=== PATIENT | male | born 1940 | race Caucasian/White ===

== ENCOUNTER 2017-03-11 13:52 | Inpatient (IN) | payer MEDICARE, OTHER ==
[~2017-03-11] VITALS: Ht 182.8 cm; Wt 103.1 kg
--- NOTE | ~2017-03-11 | PR ---
[place], [place] PROGRESS NOTE NAME: NIURKA HUNTER UNIT #: [id number] ROOM: 410 DOCTOR: AMEENA REYNOLDS MD BIRTHDATE: [birth year] DOS: 03/21/2017 SUBJECTIVE: The patient has been noted comfortable at this time. He has been complaining of some pain, which has been noted stable at this time. He denies any acute shortness of breath. Denies symptoms of chest pain. Mild cough is noted. OBJECTIVE: VITAL SIGNS: Which were recorded show normal temperature, respiratory rate 16, heart rate 82, blood pressure 132/52-134/55. Pulse oxygen saturation noted on 6 liters nasal cannula 97% saturation. HEENT: Showed no new change. NECK: Supple. CARDIOVASCULAR: S1, S2 audible. LUNGS: The patient was noted without any wheezing or crackles at this time. ABDOMEN: Soft, nontender. IMPRESSION: 1. The patient with acute hypoxic respiratory failure. The patient was noted at present time with a history of metastatic squamous cancer of unknown primary. 2. Acute exacerbation of chronic obstructive pulmonary disease. 3. Atrial fibrillation. 4. Pathological fracture of left humerus, status post ORIF. LABORATORY DATA: BMP today, glucose is 38, already treated. BUN is normal, creatinine was normal. CO2 of 34. INR was noted subtherapeutic at 1.3. CBC this morning: WBC count of 19.6, hemoglobin 10.4, hematocrit 32.5, platelet count 210,000. PLAN OF TREATMENT: Continuation of the current therapy plan and management as in progress. Bronchodilators, oxygen supplementation and decreasing oxygen supplementation progressive to maintain saturation 90% greater. Medical management of the hypoglycemia. Other supportive plan of therapy, physical therapy and other treatment plan and management. Overall prognosis of the patient is guarded. [place], [place] PROGRESS NOTE NAME: NIURKA HUNTER UNIT #: [id number] ROOM: 410 DOCTOR: AMEENA REYNOLDS MD BIRTHDATE: [birth year] AMEENA CAMEJO MD CM:PNTRANS [phone] AMEENA HARRIS MD 03/22/17 1431 interface
--- NOTE | ~2017-03-11 | PR ---
[place], [place] PROGRESS NOTE NAME: NIURKA HUNTER [facility] #: [id number] UNIT #: [id number] ROOM: [facility] DOCTOR: YAYA ANGLIN MD BIRTHDATE: [birth year] DOS: 03/14/2017 SUBJECTIVE: The patient is doing much better. He is awake, alert. He underwent a CT-guided biopsy of the liver, which he tolerated very well. He is on BiPAP at this time. PHYSICAL EXAMINATION: GENERAL: Pleasant gentleman in no apparent distress. VITAL SIGNS: Blood pressure 131/67, respirations 16, pulse 91, temperature 97.9. HEENT: Normocephalic, atraumatic. NECK AND THYROID: Supple. No JVD, thyromegaly, or lymphadenopathy. HEART: Normal S1, S2. Regular rate and rhythm. LUNGS: Clear to auscultation and percussion. ABDOMEN: Soft. Nontender, nondistended. Bowel sounds present. EXTREMITIES: Normal ROM. No clubbing. No edema. LABORATORY DATA: White count of 12.4, hemoglobin of 12.0, hematocrit of 37.4, platelet count of 285. BUN of 14, EGFR is more than 60, sodium 136, potassium 4.5, chloride 95, bicarbonate 34, calcium 9.3, magnesium 1.7, phosphorus 3.3. RADIOLOGY: Bone scan was cancer of unknown reason. CT of the chest, abdomen, and pelvis showed multiple hepatic metastases as well as metastatic lesion in the T7 vertebral body with a slight pathologic compression deformity at 2.5 cm in depth, indeterminate right adrenal mass. ASSESSMENT: 1. Multiple hepatic metastases, status post liver biopsy today. 2. Metastatic lesion in the T7 vertebral body with slight pathologic compression deformity. 3. A 2.5 cm indeterminate right adrenal mass. 4. Pathological fracture of the left humerus. 5. Leukocytosis, probably reactive. PLAN: He had a biopsy done. We will wait for the biopsy reports to come back, then further evaluation about further planning will be done. In the meantime, we will continue pain control with fentanyl patch, although it may not be a bad idea for him to get eliel in. They are going to discuss with Dr. Rae about it. He will continue broad spectrum antibiotics for his left-sided pneumonia. Ample time was given for the patient to ask me questions. [place], [place] PROGRESS NOTE NAME: NIURKA HUNTER UNIT #: [id number] ROOM: [facility] DOCTOR: YAYA ANGLIN MD BIRTHDATE: [birth year] YAYA ANGLNI MD CM:YAAKOV [id number] YAYA ANGLIN MD 03/15/17 0154 interface
--- NOTE | ~2017-03-11 | PR ---
[place], [place] PROGRESS NOTE NAME: NIURKA HUNTER [facility] #: [id number] UNIT #: [id number] ROOM: 410 DOCTOR: YAYA ANGLIN MD BIRTHDATE: [birth year] DOS: 03/20/2017 SUBJECTIVE: The patient is doing much better. He is awake, alert and responsive. He got his surgery done without any problems. REVIEW OF SYSTEMS HEENT: No trouble swallowing. No double vision. No loss of vision. No pain. ENT AND RESPIRATORY: No wheeze. No change in voice. No cough. No shortness of breath. No coughing up blood. No epistaxis. CARDIOLOGIC: No chest pain. No dizziness. No irregular heartbeat. No leg edema. No palpitations. No shortness of breath. HEMATOLOGIC AND LYMPH: No past transfusion. No fatigue. No loss of appetite. No easy bruising. GASTROENEROLOGIC: No change in bowel habits. No vomiting blood. No abdominal cramping. No nausea. No vomiting. No diarrhea. No constipation. No blood in stool. MALE REPRODUCTIVE: No testicular pain. No penile discharge. MUSCULOSKELETAL: No back pain. No muscle pain or weakness. No tingling/numbness. UROLOGIC: No pain with urination. No difficulty urinating. No frequent urination. NEUROLOGIC: No burning pain in feet. No trouble with coordination. No loss of consciousness. No headache. No tingling/numbness. No memory loss. PHYSICAL EXAMINATION GENERAL: A pleasant gentleman in no apparent distress. VITAL SIGNS: Stable. Afebrile. HEENT: Normocephalic, atraumatic NECK AND THYROID: Supple. No JVD, thyromegaly, or lymphadenopathy. HEART: Normal S1, S2. Regular rate and rhythm. LUNGS: Clear to auscultation and percussion. ABDOMEN: Soft. Nontender, nondistended. Bowel sounds present. EXTREMITIES: Normal ROM. No clubbing. No edema. LABORATORY DATA: White count 19.2, hemoglobin 10.7, hematocrit is 33.6, platelet count 239. Pathology showed metastatic squamous cell carcinoma. A plain x-ray showed faint amount of mild lucency in the proximal shaft in left femur, which corresponds to mild increased activity seen in the recent bone exam. No acute bone pathology. Bone scan showed abnormal areas of increased uptake consistent with metastatic disease to the sternum, left humerus, T8, progress into the left femur and right trapezius. Abnormal uptake is noted in the paranasal sinus region which may represent sinusitis. CT of the neck showed no definite hyperdense/enhancing mucosal mass lesions. There is mild irregular thickening of the supraglottic and hypopharyngeal mucosal surfaces nonspecific. Recommend direct visualization. If there is a persistent concern for subtle mucosal sinus cell carcinoma. 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 [place], [place] PROGRESS NOTE NAME: NIURKA HUNTER UNIT #: [id number] ROOM: 410 DOCTOR: YAYA ANGLIN MD BIRTHDATE: [birth year] ASSESSMENT: 1. Status post eliel in the left humerus, which the patient tolerated very well. 2. Leukocytosis, reactive. 3. Metastatic squamous cell carcinoma with metastasis to the liver ____. 4. Mild abnormality in the head and neck area. 5. Pneumonia involving the left lung. 6. Metastatic cancer of unknown primary. PLAN: Overall, he has done much better. He has tolerated the surgery well. I expect leukocytosis to get better. I will talk to the family and the medical reception if we need to let ENT involve for direct visualization of the head and neck area. I also discussed the case with Dr. Avelar, he does not think ____. We may also involve Dr. Soni for a sigmoidoscopy to rule out any internal CA. I had detailed discussion with the patient about it, he seemed to understand it. Ample time was given to the patient to ask me questions. YAYA ANGLIN MD CM:PNTRANS 1129 165 YAYA ANGLIN MD 03/20/17 165 interface
--- NOTE | ~2017-03-11 | PR ---
[place], [place] PROGRESS NOTE NAME: NIURKA HUNTER UNIT #: [id number] ROOM: [facility] DOCTOR: AMEENA REYNOLDS MD BIRTHDATE: [birth year] DOS: 03/18/2017 PULMONARY FOLLOWUP SUBJECTIVE: He has been comfortably resting in the bed at this time. He has a biopsy of the liver done last week, pending results at this time. Denies any cough, shortness of breath has been improving since the BiPAP. The patient is ordered with oxygen supplementation intermittently. OBJECTIVE: VITAL SIGNS: Normal temperature, respiratory rate of 13, heart rate 69, blood pressure 100/54. The pulse oxygen saturation has been noted 95% on 40% of oxygen. HEENT: Showed no new change. NECK: Supple. CARDIOVASCULAR: S1, S2 audible. LUNGS: Noted without any wheezing or crackles. ABDOMEN: Soft, nontender. It was obese. EXTREMITIES: Shows no new changes. LABORATORY DATA: CBC today: WBC count 21.2, hemoglobin 11.5, hematocrit 36.2, platelet count was normal. The PTT was noted this morning as 79. It was noted therapeutic range. The blood culture on 03/13/2017 shows no bacterial growth as a final result. IMPRESSION: 1. Improving acute hypoxic respiratory failure progressively with suspected metastatic cancer, primary unknown, status post biopsy of the liver. 2. Overall debility, still persisted. 3. Anticoagulation ____ therapeutic heparin for his chronic anticoagulation. PLAN OF TREATMENT: No changes in the plan at this time needs to be done. Continuation of current treatment plan and management previously in progress. Usual care. All other supportive therapy, plan of care, pain and management. [place], [place] PROGRESS NOTE NAME: NIURKA HUNTER UNIT #: [id number] ROOM: [facility] DOCTOR: AMEENA REYNOLDS MD BIRTHDATE: [birth year] AMEENA CAMEJO MD CM:PNTRANS [id number] AMEENA HARRIS MD 03/18/17 1238 interface
--- NOTE | ~2017-03-11 | PR ---
[place], [place] PROGRESS NOTE NAME: NIURKA HUNTER [facility] #: [id number] UNIT #: [id number] ROOM: [facility] DOCTOR: NASREEN SHULTZ MD BIRTHDATE: [birth year] DOS: SUBJECTIVE: This patient is sitting up in bed, does not appear in any distress. Denies any cardiac complaint. No chest pain, no chest pressure, no jaw pain. No symptomatic palpitation. OBJECTIVE: VITAL SIGNS: Blood pressure 117/62, heart rate 73, respiratory rate of 14, temperature 98.1. NECK: Good upstroke, no bruit. HEART: S1, S2 with no rub. LUNGS: Decreased air movement, but no maty wheezing or rales. ABDOMEN: Obese, soft, nontender. Present bowel sounds. EXTREMITIES: Mild ankle edema. LABORATORY DATA: White count 15.4, hemoglobin 12.2, potassium 4.8. GFR more than 60%. ASSESSMENT AND PLAN: History of coronary artery disease along with chronic obstructive pulmonary disease and currently evidence of a liver mass. The patient has been preop by Dr. Everett already. From the cardiology point of view, he continued to be asymptomatic and euvolemic. The patient does higher risk of perioperative cardiac events, but the patient is well aware and accepting that risk. Plan for surgery on Saturday. Keep the patient on a monitored bed following surgery. We will be following up along with you. NASREEN SHULTZ MD CM:PNTRANS [phone] NASREEN SHULTZ MD 03/16/17 1128 interface
--- NOTE | ~2017-03-11 | PR ---
[place], [place] PROGRESS NOTE NAME: NIURKA HUNTER UNIT #: [id number] ROOM: [facility] DOCTOR: AMENEA REYNOLDS MD BIRTHDATE: [birth year] DOS: 03/20/2017 SUBJECTIVE: The patient underwent surgical intervention for his fracture of the left arm, which was noted pathological fracture. Diagnosis of squamous cell carcinoma has been describing the biopsy of the liver with further regeneration of the tumor staining, was pending per pathology report. PHYSICAL EXAMINATION: VITAL SIGNS: Showed normal temperature, respiratory rate 14, heart rate of 90, blood pressure 131/65. Pulse oxygen saturation noted as 95-96% on 6 L nasal cannula. HEENT: Examination shows head was atraumatic. Eyes nonicterus. NECK: Supple. CARDIOVASCULAR: S1, S2 audible. LUNGS: Noted without any crackles, rhonchi or wheezing. ABDOMEN: Soft, nontender. LABORATORY DATA: CBC of the patient this morning, WBC count 19.2, hemoglobin 10.7, hematocrit 33.6, platelet count was noted as normal. CT scan of the neck for this patient that was done this morning described by the radiologist report as no definitive abnormal mucosal lesions. IMPRESSION: 1. The patient with a squamous cell carcinoma, exact regeneration was unclear. Left lower lobe atelectasis the patient noted, less likely to be malignant area for this patient; however, to be assessed with the PET scan. 2. The patient with acute respiratory failure, which has been noted stable at this time. 3. Metastatic cancer of the lungs at this time, unknown primary area. 4. Leukocytosis. PLAN OF TREATMENT: Continue oxygen supplementation, bronchodilators, and treatment plan of management. Usual care, other supportive therapy, plan of care. Other treatment plan as previously will be continued. Usual therapies. [place], [place] PROGRESS NOTE NAME: NIURKA HUNTER [facility] #: [id number] UNIT #: [id number] ROOM: [facility] DOCTOR: AMEENA REYNOLDS MD BIRTHDATE: [birth year] AMEENA CAMEJO MD CM:PNTRANS 1101 1206 AMEENA HARRIS MD 03/20/17 1207 interface
--- NOTE | ~2017-03-11 | O ---
[place], [place] OPERATIVE NOTE NAME: NIURKA HUNTER [facility] #: [id number] UNIT #: [id number] ROOM: [facility] DOCTOR: PRABHA RAE DO BIRTHDATE: [birth year] DOS: 03/19/2017 PREOPERATIVE DIAGNOSIS: Left humeral shaft pathologic fracture. POSTOPERATIVE DIAGNOSIS: Left humeral shaft pathologic fracture. OPERATIVE PROCEDURE: Left humerus pathologic shaft fracture intramedullary eliel fixation. SURGEON: Prabha Rae DO MILLWRIGHT: Jovi. ANESTHESIA: LAURA Delgadillo, general endotracheal. INDICATIONS: The patient is a 76-year-old male with a history of a pathological fracture of the left humeral shaft with minimal displacement. The patient had no significant trauma and no known malignancy at the time of the fracture. Medical workup continues to be in progress. The risks and benefits of a fixation of the left humeral shaft fracture were explained to the patient and his . The patient was medically optimized for the surgery. PROCEDURE IN DETAIL: The left humerus was marked in the holding room. The patient was brought to the operative suite. The general surgeon, Dr. Soni performed the placement of a MediPort. When this was completed, the general anesthetic with endotracheal intubation was continued for the left humeral shaft fixation. Timeout was performed. The patient received Levaquin preoperatively. The left lower extremity was prepped and draped in the usual orthopedic fashion. The C-arm was utilized in multiple planes to evaluate the proximal humerus as well as the fracture site and distal humerus. The area about the anterior lateral shoulder was injected with Marcaine 0.5% with epinephrine. A longitudinal incision was made from the level of the lateral anterior acromion approximately 3 cm distally. Subcutaneous tissue was spread down to the level of the deltoid fascia. The deltoid fascia was divided in a longitudinal fashion. The arm was adducted across the chest and the greater trochanter was palpated. A longitudinal incision was made within the rotator cuff to locate the greater trochanter. A guidewire was placed from proximal to distal at the junction of the articular cartilage and greater tuberosity. The reamer was placed over the guidewire and under C-arm guidance, the proximal cortex was opened. The guidewire and reamer were removed and a 2.4 mm guidewire was placed from proximal to distal through the intramedullary canal past the fracture site into the distal humerus. The length of the anticipated intramedullary eliel was measured from this guidewire. Reamers were utilized, beginning with an 8 mm flexible reamer and progressing to a 12 mm reamer under C-arm guidance. The reaming was advanced to the level of the surgical neck, but not beyond due to the metastatic lesion. The 9 x 2.5 Nader humeral nail was attached to the proximal humeral and inserted over the guidewire. This was advanced manually and tapped across the fracture site under C-arm guidance. When the positioning was found to be adequate, the proximal humeral cannula was put into place through the guide. The skin was injected with Marcaine with epinephrine. [place], [place] OPERATIVE NOTE NAME: NIURKA HUNTER Nancy UNIT #: [id number] ROOM: [facility] DOCTOR: PRABHA RAE DO BIRTHDATE: [birth year] A small incision was made. Subcutaneous tissue was spread down to the level of the bone and the cannulas were advanced including the cortical punch. The diagonal screw hole was chosen. The drill was then advanced under C-arm guidance from lateral to medial in superior to inferior direction. The length of the screw was measured and advanced under C-arm guidance. Attention was turned to the distal locking screw. The free hand targeting device was utilized to locate and centralize the static locking hole. The area was injected with Marcaine 0.5% with epinephrine. A small incision was made. Subcutaneous tissue was spread and the soft tissue was spread down to bone. The drill was advanced through the targeting device and when a 90 degree angle was obtained, advanced from anterior to posterior. The length was measured and the appropriate sized cortical screw was placed. The proximal nail, fracture site, distal nail with locking screws were evaluated under C-arm in multiple planes. The areas were copiously irrigated with normal saline and closed in a layered fashion with 2-0 Vicryl, 3-0 Vicryl and skin marilin. The areas were again injected with Marcaine 0.25% with epinephrine. Xeroform, 4 x 4's and a Tegaderm dressing were applied. The patient was wrapped with Webril from the mid palm to the proximal humerus followed by an Ector bandage for soft tissue support. The anesthetic was reversed. The patient was extubated and taken to the recovery room in satisfactory condition. Sponge and needle count correct. ESTIMATED BLOOD LOSS: 50 mL. SPECIMENS: None. DRAINS: None. PACKING: None. COMPLICATIONS: None. IMPLANTS: Nader M/DN intramedullary fixation. A 2.4 cortical screws measuring 40 mm in length and 25 mm in length, M/DN intramedullary fixation humeral nail measuring 9 mm in diameter and 25.5 cm in length. FINDINGS: Left humeral shaft pathologic fracture. [place], [place] OPERATIVE NOTE NAME: NIURKA HUNTER UNIT #: [id number] ROOM: [facility] DOCTOR: PRABHA RAE DO BIRTHDATE: [birth year] PRABHA RAE DO CM:OPRECORD:OPERATIVE NOTE [id number] PRABHA RAE DO 03/19/17 1645 interface
--- NOTE | ~2017-03-11 | PR ---
[place], [place] PROGRESS NOTE [id number] #: [id number] ROOM: [facility] DOCTOR: NASREEN SHULTZ MD BIRTHDATE: [birth year] DOS: SUBJECTIVE: The patient is sitting up in bed, does not appear in distress. Denies any ongoing complaint. OBJECTIVE: VITAL SIGNS: Blood pressure 112/52, heart rate 83, respiratory rate of 16 and temperature 98.0. NECK: Good upstroke, no bruit, no evidence of JVD. HEART: S1, S2 with no rub. LUNGS: Significant decrease in air movement, but no maty wheezing or rales. Scattered rhonchi could be appreciated. ABDOMEN: Obese, soft, nontender. Present bowel sounds. LOWER EXTREMITIES: There is mild edema. ASSESSMENT AND PLAN: Presentation with left humerus fracture in a patient with a history also of liver mass and with possible metastases. Cardiology has been called for preoperative evaluation. The patient had been cleared by Dr. Everett. So far, the patient continued to be asymptomatic from the Cardiology point of view and appeared to be relatively euvolemic. The patient is cleared for his surgery, he understands the risk and the alternatives. Lopressor should be continued same day of surgery and the patient should be kept on a monitor bed following surgery. We would be following following the surgery. NASREEN SHULTZ MD CM:PNTRANS 1213 1325 NASREEN SHULTZ MD 03/17/17 1325 interface
--- NOTE | ~2017-03-11 | PR ---
[place], [place] PROGRESS NOTE NAME: NIURKA HUNTER UNIT #: [id number] ROOM: [facility] DOCTOR: AMEENA REYNOLDS MD BIRTHDATE: [birth year] DOS: 03/15/2017 SUBJECTIVE: The patient had successful liver biopsy completed yesterday. The patient was without any complications. The patient was still complaining of pain in the back, which has been noted controlled with pain medication. Shortness of breath has been noted decreased. Cough has been noted mild to moderate, but there were no sputum expectoration. Denies symptoms of chest pain or any abdominal pain. OBJECTIVE: VITAL SIGNS: For the patient which were recorded shows the temperature recorded normal, respiratory rate 14 this morning, heart rate 76, blood pressure ____. Intake at 7:45 is 1100 mL. Pulse oxygen saturation of the patient on Venturi mask and nasal cannula was noted 94-96% saturation. HEENT: Examination shows moderate obesity. Neck was supple. Head was atraumatic. CARDIOVASCULAR: S1, S2 audible. LUNGS: Noted with decreased breath sounds, scattered crackles, no wheezing. ABDOMEN: Soft, nontender. LABORATORY DATA: CBC today: WBC count 14,000, hemoglobin 12, hematocrit 38.1, platelet count 265,000. BMP of the patient noted this morning, glucose 150, BUN 29, creatinine were normal. Sodium 135. IMPRESSION: 1. Acute hypoxic respiratory failure, pathological fracture of the left humerus with suspected metastatic disease, noted unknown primary at this time. 2. The patient with history of type 2 diabetes mellitus and history of chronic atrial fibrillation. 3. Acute exacerbation of chronic obstructive pulmonary disease as well. 4. Left lower lobe pneumonia. PLAN OF MANAGEMENT: No changes at this time in the treatment will be recommended for this patient. Continue antibiotics, bronchodilators, oxygen supplementation and other plan of management as in progress. Monitor respiratory status. In case of any wheezing, if developed for this patient, the patient would be started on intravenous corticosteroids. Continue the use of BiPAP. [place], [place] PROGRESS NOTE NAME: NIURKA HUNTER UNIT #: [id number] ROOM: [facility] DOCTOR: AMEENA REYNOLDS MD BIRTHDATE: [birth year] AMEENA CAMEJO MD CM:PNTRANS 1039 AMEENA HARRIS MD 03/15/17 1655 interface
--- NOTE | ~2017-03-11 | O ---
[place], [place] OPERATIVE NOTE NAME: NIURKA HUNTER [facility] #: [id number] UNIT #: [id number] ROOM: [facility]- DOCTOR: JORDY SONI MD BIRTHDATE: [birth year] DOS: 03/19/2017 PREOPERATIVE DIAGNOSIS: Advanced malignancy. POSTOPERATIVE DIAGNOSIS: Advanced malignancy. PROCEDURE: Right internal jugular MediPort placement. SURGEON: Jordy Soni MD PEANUT ROASTER: MS3. ANESTHESIA: General. INDICATIONS: This is a 76-year-old gentleman with multiple pathological fractures due to an unknown primary who is here for a MediPort placement for the purposes of chemotherapy. The procedure and its complications were explained to the patient in detail and his preoperatively. Complications that were discussed included but were not limited to bleeding, infection, hematoma/seroma/abscess formation, pneumothorax formation, hemothorax formation and prolonged pain. He agreed to proceed. DESCRIPTION OF PROCEDURE: After identifying the patient, the patient was brought to the operating suite and laid in the supine position. After time-out procedure was called, general anesthesia was administered by the anesthesia team and the parts were then painted and draped in the usual sterile fashion. The right internal jugular vein was accessed percutaneously with the help of ultrasound probe. A guidewire was placed and this was confirmed to be in good position with the help of fluoroscopy. Thereafter, a pocket was created on the anterior chest wall approximately 2-3 fingerbreadths below the right clavicle. The catheter was then placed over an introducer and passed from this area of the pocket to the neck where the percutaneous access was obtained for the internal jugular vein. An introducer was passed over the guidewire and the guidewire was removed. The catheter was then inserted through the sheath till its position was confirmed to be adequately in place with the help of fluoroscopy in the junction of the right atrium and the superior vena cava. The catheter was then cut to size and then a port was attached to this. The port was then fixed to the underlying tissues with the help of 3-0 Prolene in an interrupted fashion. The port itself was accessed and heparin was injected and there was good blood return and good flow to the heparin. Thereafter, the port was positioned appropriately and the subcutaneous tissue was approximated with the help of 3-0 Vicryl in a running fashion and the skin edges were approximated with the help of 4-0 Vicryl in a subcuticular running fashion. Thereafter, the port was accessed again and it was found to have good blood return and good flow through the heparin. A dressing was placed. The patient tolerated the procedure well. He was allowed to stay in the operating room for the orthopedic part of the procedure for his left humerus, which will be dictated as a separate note by Dr. Rae. A chest x-ray will be ordered after the left humeral eliel placement is completed. There were no complications. Dr. Jordy Soni, the attending surgeon, was present throughout the operating case. [place], [place] OPERATIVE NOTE NAME: NIURKA HUNTER UNIT #: [id number] ROOM: [facility] DOCTOR: JORDY SONI MD BIRTHDATE: [birth year] Jordy Soni MD CM:OPRECORD:OPERATIVE NOTE [id number] JORDY SONI MD 03/19/17 1059 interface
--- NOTE | ~2017-03-11 | PR ---
[place], [place] PROGRESS NOTE NAME: NIURKA HUNTER [facility] #: [id number] UNIT #: [id number] ROOM: [facility] DOCTOR: YAYA ANGLIN MD BIRTHDATE: [birth year] DOS: 03/18/2017 SUBJECTIVE: The patient is doing better. He was evaluated by Cardiology last weekend if he is okay for surgery. He is alert, oriented, responsive. is sitting at the bedside. REVIEW OF SYSTEMS HEENT: No trouble swallowing. No double vision. No loss of vision. No pain. ENT AND RESPIRATORY: No wheeze. No change in voice. No cough. No shortness of breath. No coughing up blood. No epistaxis. CARDIOLOGIC: No chest pain. No dizziness. No irregular heartbeat. No leg edema. No palpitations. No shortness of breath. HEMATOLOGIC AND LYMPH: No past transfusion. No fatigue. No loss of appetite. No easy bruising. GASTROENTEROLOGIC: No change in bowel habits. No vomiting blood. No abdominal cramping. No nausea. No vomiting. No diarrhea. No constipation. No blood in stool. MALE REPRODUCTIVE: No testicular pain. No penile discharge. MUSCULOSKELETAL: No back pain. No muscle pain or weakness. No tingling/numbness. UROLOGIC: No pain with urination. No difficulty urinating. No frequent urination. NEUROLOGIC: No burning pain in feet. No trouble with coordination. No loss of consciousness. No headache. No tingling/numbness. No memory loss. PHYSICAL EXAMINATION GENERAL: Pleasant gentleman in no apparent distress. VITAL SIGNS: Stable, afebrile. HEENT: Normocephalic, atraumatic NECK AND THYROID: Supple. No JVD, thyromegaly, or lymphadenopathy. HEART: Normal S1, S2. Regular rate and rhythm. LUNGS: Clear to auscultation and percussion. ABDOMEN: Soft. Nontender, nondistended. Bowel sounds present. EXTREMITIES: Normal ROM. No clubbing. There is positive edema on the right upper extremity. The humeral fracture braces in place. LABS: From 03/18/2017, white count 21.2, hemoglobin 11.5, hematocrit 36.2, platelet count 305,000. RADIOLOGY: Bone scan showed areas of increased uptake consistent with metastatic disease within the sternum, left humerus, T8, progress into the left femur and right trapezius. Plain x-rays of the left femur shows faint amount of mild lucency in the proximal shaft of the left femur, which corresponds to mild increased activity seen on the recent bone scan. Pathology is pending. ASSESSMENT: 1. Pathological fracture of the left humerus. [place], [place] PROGRESS NOTE NAME: NIURKA HUNTER UNIT #: [id number] ROOM: [facility] DOCTOR: YAYA ANGLIN MD BIRTHDATE: [birth year] 2. Leukocytosis, probably reactive. 3. Mild anemia. 4. Metastatic disease to different areas of the bones. PLAN: I will talk to ____ about path report. In the meantime, discussed with the residents that in case this patient's overall condition is good and Cardiology has given okay for possible surgery of the left pathological fracture of the humerus. I expect the white count to improve once his overall condition improves. His pneumonia is also resolving and that could be the reason for his leucocytosis. I had a detailed discussion with the patient and his family and his who seemed to understand. Ample time was given to the patient to ask me questions. YAYA ANGLIN MD CM:PNTRANS 1344 [id number] YAYA ANGLIN MD 03/18/17 1450 interface
[~2017-03-11 13:52] MED LIST: ASCRIPTIN1 TA1 PO; ASPIRIN81 M1 PO; CAPOTEN25 MG PO; DIABETA5 MG PO; LANTUS100 U/ML SC; METFORMIN1000 MG PO; NORVASC10 MG PO; SIMVASTATIN40 MG PO; ZESTRIL,PRINIVI10 MG PO
[2017-03-11 14:14] VITALS: BP 95/63
[2017-03-11 14:24] VITALS: BP 113/52
[2017-03-11 15:22] VITALS: BP 103/47
[2017-03-11] MEDS ORDERED: DILTIAZEM 24HR180 MG PO (16:57)
[2017-03-11] MEDS ORDERED: LASIX40 MG PO (16:58)
[2017-03-11] MEDS ORDERED: DILTIAZEM 24HR120 MG PO (17:00)
[2017-03-11] MEDS ORDERED: DOCUSATE SODIU100 M2 PO (17:01)
[2017-03-11 17:09] VITALS: BP 160/64
[2017-03-11 17:13] LABS: HEMATOCRIT 38.9 % (42.0-52.0); HEMOGLOBIN 12.6 g/dl (14.0-18.0); MEAN CELL VOLUME 83.7 fl (80.0-94.0); MEAN CORPUSCULAR HGB 27.1 pg (27.0-31.0); MEAN CORPUSCULAR HGB CONC 32.4 g/dl (33.0-37.0); MEAN PLATELET VOLUME 9.9 fl (9.6-12.3); PLATELET COUNT AUTOMATED 275 10*3/uL (130-400); RED BLOOD COUNT 4.65 10*6/uL (4.50-5.90); RED CELL DISTRI WIDTH 15.3 % (0-14.5); WHITE BLOOD COUNT 13.3 10*3/uL (4.8-10.8)
[2017-03-11] MEDS ORDERED: KLOR-CON M2020 ME1 PO (17:14)
[2017-03-11] MEDS ORDERED: PROPAFENONE HC150 MG PO (17:15)
[2017-03-11] MEDS ORDERED: GUAIFENESIN600 MG PO (17:15)
[2017-03-11] MEDS ORDERED: COUMADIN5 M2 PO (17:19)
[2017-03-11] MEDS ORDERED: COUMADIN2.5 M1 PO (17:19)
[2017-03-11] MEDS ORDERED: ADVAIR 500/501 EA INH (17:20)
[2017-03-11] MEDS ORDERED: PROAIR HFA8.5 GM INH (17:20)
[2017-03-11] MEDS ORDERED: TYLENOL EXTRA500 MG PO (17:21)
[2017-03-11 17:22] LABS: INTERNATIONAL NORM RATIO 1.8 (2.0-3.5); PROTHROMBIN TIME 19.4 SECONDS (9.0-12.4)
[2017-03-11 17:33] LABS: ALBUMIN 2.8 gm/dl (3.1-4.5); ALKALINE PHOSPHATASE 192 U/L (45-117); BILIRUBIN, TOTAL 0.4 mg/dl (0.2-1.0); BUN 12 mg/dl (7-24); CARBON DIOXIDE 30 mmol/L (21-32); CHLORIDE 99 mmol/L (98-107); EOSINOPHIL # 0.1 10*3/uL (0-0.4); EOSINOPHILS 1 % (1-4); EST GLOM FILT AFRICAN AMERICAN > 60 ml/min; GLUCOSE 157 mg/dL (65-99); LYMPHOCYTE # 1.2 10*3/uL (1.3-4.4); MAGNESIUM 1.9 mg/dL (1.5-2.1); MONOCYTE # 0.9 10*3/uL (0.1-1.0); MYELOCYTES 2 % (0-0); NEUTROPHIL # 10.8 10*3/uL (2.3-7.9); NEUTROPHILS 81 % (47-73); PLATELET SUFFICIENCY NORMAL (NORMAL); POTASSIUM 4.8 mmol/L (3.5-5.1); SGOT/AST 29 IU/L (3-35); SGPT/ALT 25 U/L (12-78); SODIUM 136 mmol/L (136-145); TOTAL CELLS COUNTED 100 #CELLS; TOTAL PROTEIN 6.7 gm/dL (6.4-8.2); TOXIC GRANULATION SLIGHT
[2017-03-11 17:34] LABS: CKMB 0.6 ng/ml (0.5-3.6)
[2017-03-11 17:34] LABS: BURR CELLS FEW; OVALOCYTES FEW; POLYCHROMASIA SLIGHT
[2017-03-11 17:35] LABS: TROPONIN I < 0.015 ng/ml (<0.045)
[2017-03-11 20:00] VITALS: BP 121/57
[2017-03-11 22:34] LABS: CKMB 0.6 ng/ml (0.5-3.6)
[2017-03-12] VITALS: BP 115/54
[2017-03-12 05:00] VITALS: BP 108/70
[2017-03-12 06:28] LABS: HEMATOCRIT 36.7 % (42.0-52.0); HEMOGLOBIN 11.6 g/dl (14.0-18.0); MEAN CELL VOLUME 82.8 fl (80.0-94.0); MEAN CORPUSCULAR HGB 26.2 pg (27.0-31.0); MEAN CORPUSCULAR HGB CONC 31.6 g/dl (33.0-37.0); PLATELET COUNT AUTOMATED 268 10*3/uL (130-400); RED BLOOD COUNT 4.43 10*6/uL (4.50-5.90); RED CELL DISTRI WIDTH 15.1 % (0-14.5); WHITE BLOOD COUNT 12.1 10*3/uL (4.8-10.8)
[2017-03-12 06:39] LABS: CPK 30 U/L (39-308)
[2017-03-12 06:41] LABS: CKMB < 0.5 ng/ml (0.5-3.6)
[2017-03-12 06:54] LABS: HEMOGLOBIN A1c 9.9 % (4.8-5.6)
[2017-03-12 07:01] LABS: EOSINOPHIL # 0.1 10*3/uL (0-0.4); EOSINOPHILS 1 % (1-4); LYMPHOCYTE # 1.8 10*3/uL (1.3-4.4); MONOCYTE # 1.8 10*3/uL (0.1-1.0); MYELOCYTES 3 % (0-0); NEUTROPHILS 66 % (47-73); PLATELET SUFFICIENCY NORMAL (NORMAL); TOTAL CELLS COUNTED 100 #CELLS
[2017-03-12 07:05] LABS: ALBUMIN 2.5 gm/dl (3.1-4.5); ALKALINE PHOSPHATASE 169 U/L (45-117); BILIRUBIN, TOTAL 0.4 mg/dl (0.2-1.0); BUN 10 mg/dl (7-24); CARBON DIOXIDE 30 mmol/L (21-32); CHLORIDE 98 mmol/L (98-107); CHOLESTEROL 104 mg/dL (<200); EST GLOM FILT AFRICAN AMERICAN > 60 ml/min; FREE T4 1.28 ng/dl (0.76-1.46); GLUCOSE 99 mg/dL (65-99); HDL CHOLESTEROL 33 mg/dl (40-60); LDL CHOLESTEROL 54 mg/dL (9-159); MAGNESIUM 1.5 mg/dL (1.5-2.1); PHOSPHOROUS 3.4 mg/dL (2.5-4.9); POTASSIUM 4.2 mmol/L (3.5-5.1); SGOT/AST 26 IU/L (3-35); SGPT/ALT 22 U/L (12-78); SODIUM 133 mmol/L (136-145); TOTAL PROTEIN 6.1 gm/dL (6.4-8.2); TRIGLYCERIDES 84 mg/dl (<150); VLDL CHOLESTEROL 17 mg/dL (6-40)
[2017-03-12 07:11] LABS: INTERNATIONAL NORM RATIO 1.9 (2.0-3.5); PROTHROMBIN TIME 20.9 SECONDS (9.0-12.4)
[2017-03-12 07:26] LABS: VITAMIN D, 25-HYDROXY 17.9 ng/mL (30-100)
[2017-03-12 07:32] LABS: FOLIC ACID > 24.00 ng/mL (>5.38)
[2017-03-12 08:00] VITALS: BP 139/74
[2017-03-12 14:45] LABS: ABG CO2 CONTENT 32.8 mmol/L (23-27); ABG HCO3 31.2 mmol/l (22-26); ABG TEMPERATURE 97.6 F (98.0-99.0); ARTERIAL BLOOD GAS PH 7.378 (7.35-7.45)
[2017-03-12 14:50] VITALS: BP 119/53
[2017-03-12 19:55] VITALS: BP 113/53
[2017-03-12 23:34] VITALS: BP 126/55
[2017-03-13 03:26] VITALS: BP 95/42
[2017-03-13 06:05] LABS: HEMATOCRIT 37.4 % (42.0-52.0); MEAN CELL VOLUME 83.7 fl (80.0-94.0); MEAN CORPUSCULAR HGB 26.8 pg (27.0-31.0); MEAN CORPUSCULAR HGB CONC 32.1 g/dl (33.0-37.0); MEAN PLATELET VOLUME 10.7 fl (9.6-12.3); PLATELET COUNT AUTOMATED 285 10*3/uL (130-400); RED BLOOD COUNT 4.47 10*6/uL (4.50-5.90); RED CELL DISTRI WIDTH 15.1 % (0-14.5); WHITE BLOOD COUNT 12.4 10*3/uL (4.8-10.8)
[2017-03-13 06:09] LABS: BUN 14 mg/dl (7-24); CARBON DIOXIDE 34 mmol/L (21-32); CHLORIDE 95 mmol/L (98-107); EST GLOM FILT AFRICAN AMERICAN > 60 ml/min; GLUCOSE 292 mg/dL (65-99); MAGNESIUM 1.7 mg/dL (1.5-2.1); PHOSPHOROUS 3.3 mg/dL (2.5-4.9); POTASSIUM 4.5 mmol/L (3.5-5.1); SODIUM 136 mmol/L (136-145)
[2017-03-13 06:55] LABS: LYMPHOCYTE # 2.2 10*3/uL (1.3-4.4); NEUTROPHIL # 9.2 10*3/uL (2.3-7.9); NEUTROPHILS 74 % (47-73); TOTAL CELLS COUNTED 100 #CELLS
[2017-03-13 06:56] LABS: PLATELET SUFFICIENCY NORMAL (NORMAL)
[2017-03-13 07:59] LABS: ABG BASE EXCESS 5.7 mmol/L (-2.0-2.0); ABG CO2 CONTENT 34.4 mmol/L (23-27); ABG HCO3 32.6 mmol/l (22-26); ABG TEMPERATURE 98.4 F (98.0-99.0); ARTERIAL BLOOD GAS PH 7.348 (7.35-7.45); ARTERIAL BLOOD GAS PO2 85.8 mmHg (80-90)
[2017-03-13 08:00] VITALS: BP 115/61
[2017-03-13 08:08] LABS: INTERNATIONAL NORM RATIO 1.7 (2.0-3.5); PROTHROMBIN TIME 18.7 SECONDS (9.0-12.4)
[2017-03-13 12:00] VITALS: BP 107/60
[2017-03-13 16:03] VITALS: BP 115/57
[2017-03-13 20:00] VITALS: BP 112/61
[2017-03-14] VITALS: BP 106/67
[2017-03-14 04:00] VITALS: BP 131/67
[2017-03-14 06:11] LABS: INTERNATIONAL NORM RATIO 1.3 (2.0-3.5); PROTHROMBIN TIME 13.5 SECONDS (9.0-12.4)
[2017-03-14 07:56] VITALS: BP 123/69
[2017-03-14 12:00] VITALS: BP 101/50
[2017-03-14 16:00] VITALS: BP 113/57
[2017-03-14 16:10] LABS: ALBUMIN, URINE 36.8 % (.); GAMMA GLOBULIN, URINE 18.8 % (.); M-SPIKE, % Not Observed % (Not Observed); PROTEIN,TOTAL - URINE RANDOM 7.1 mg/dL (Not Estab.)
[2017-03-14 20:00] VITALS: BP 107/54
[2017-03-15] VITALS: BP 114/58
[2017-03-15 04:00] VITALS: BP 115/53
[2017-03-15 05:15] LABS: TOTAL PROTEIN, SERUM 5.5 g/dL (6.0-8.5)
[2017-03-15 05:21] LABS: CARBON DIOXIDE 32 mmol/L (21-32); CHLORIDE 95 mmol/L (98-107); EST GLOM FILT AFRICAN AMERICAN > 60 ml/min; GLUCOSE 150 mg/dL (65-99); POTASSIUM 4.9 mmol/L (3.5-5.1); SODIUM 135 mmol/L (136-145)
[2017-03-15 05:27] LABS: BUN 29 mg/dl (7-24)
[2017-03-15 05:54] LABS: HEMATOCRIT 38.1 % (42.0-52.0); MEAN CELL VOLUME 85.2 fl (80.0-94.0); MEAN CORPUSCULAR HGB 26.8 pg (27.0-31.0); MEAN CORPUSCULAR HGB CONC 31.5 g/dl (33.0-37.0); MEAN PLATELET VOLUME 11.2 fl (9.6-12.3); PLATELET COUNT AUTOMATED 265 10*3/uL (130-400); RED BLOOD COUNT 4.47 10*6/uL (4.50-5.90)
[2017-03-15 05:59] LABS: INTERNATIONAL NORM RATIO 1.1 (2.0-3.5); PROTHROMBIN TIME 12.1 SECONDS (9.0-12.4)
[2017-03-15 07:06] LABS: EOSINOPHIL # 0.4 10*3/uL (0-0.4); EOSINOPHILS 3 % (1-4); LYMPHOCYTE # 2.7 10*3/uL (1.3-4.4); MONOCYTE # 0.6 10*3/uL (0.1-1.0); MYELOCYTES 1 % (0-0); NEUTROPHIL # 10.2 10*3/uL (2.3-7.9); NEUTROPHILS 73 % (47-73); PLATELET SUFFICIENCY NORMAL (NORMAL); TOTAL CELLS COUNTED 100 #CELLS
[2017-03-15 08:00] VITALS: BP 105/49
[2017-03-15 12:00] VITALS: BP 130/62
[2017-03-15 15:09] LABS: ALBUMIN 2.7 g/dL (2.9-4.4); ALPHA-1-GLOBULIN 0.4 g/dL (0.0-0.4); BETA GLOBULIN 0.9 g/dL (0.7-1.3); GAMMA GLOBULIN 0.6 g/dL (0.4-1.8); GLOBULIN, TOTAL 2.8 g/dL (2.2-3.9); M-SPIKE 0.2 g/dL (Not Observed)
[2017-03-15 16:00] VITALS: BP 109/56
[2017-03-15 20:00] VITALS: BP 120/58
[2017-03-16] VITALS: BP 111/60
[2017-03-16 04:00] VITALS: BP 118/58
[2017-03-16 06:15] LABS: HEMOGLOBIN 12.2 g/dl (14.0-18.0); MEAN CELL VOLUME 84.4 fl (80.0-94.0); MEAN CORPUSCULAR HGB 27.1 pg (27.0-31.0); MEAN CORPUSCULAR HGB CONC 32.1 g/dl (33.0-37.0); MEAN PLATELET VOLUME 10.7 fl (9.6-12.3); PLATELET COUNT AUTOMATED 286 10*3/uL (130-400); RED CELL DISTRI WIDTH 15.1 % (0-14.5); WHITE BLOOD COUNT 15.4 10*3/uL (4.8-10.8)
[2017-03-16 06:44] LABS: EOSINOPHIL # 0.2 10*3/uL (0-0.4); EOSINOPHILS 1 % (1-4); LYMPHOCYTE # 1.4 10*3/uL (1.3-4.4); MONOCYTE # 2.2 10*3/uL (0.1-1.0); NEUTROPHIL # 11.7 10*3/uL (2.3-7.9); NEUTROPHILS 76 % (47-73); PLATELET SUFFICIENCY NORMAL (NORMAL); TOTAL CELLS COUNTED 100 #CELLS
[2017-03-16 06:46] LABS: BUN 27 mg/dl (7-24); CARBON DIOXIDE 33 mmol/L (21-32); CHLORIDE 95 mmol/L (98-107); EST GLOM FILT AFRICAN AMERICAN > 60 ml/min; GLUCOSE 168 mg/dL (65-99); POTASSIUM 4.8 mmol/L (3.5-5.1); SODIUM 134 mmol/L (136-145)
[2017-03-16 06:50] LABS: INTERNATIONAL NORM RATIO 1.1 (2.0-3.5); PROTHROMBIN TIME 11.8 SECONDS (9.0-12.4)
[2017-03-16 08:00] VITALS: BP 117/62
[2017-03-16 12:00] VITALS: BP 104/56
[2017-03-16 15:45] VITALS: BP 123/67
[2017-03-16 20:00] VITALS: BP 123/67
[2017-03-17] VITALS: BP 104/46
[2017-03-17 03:15] LABS: HEMATOCRIT 36.3 % (42.0-52.0); HEMOGLOBIN 11.4 g/dl (14.0-18.0); MEAN CORPUSCULAR HGB 26.7 pg (27.0-31.0); MEAN CORPUSCULAR HGB CONC 31.4 g/dl (33.0-37.0); MEAN PLATELET VOLUME 10.5 fl (9.6-12.3); PLATELET COUNT AUTOMATED 312 10*3/uL (130-400); RED BLOOD COUNT 4.27 10*6/uL (4.50-5.90); RED CELL DISTRI WIDTH 14.9 % (0-14.5); WHITE BLOOD COUNT 17.8 10*3/uL (4.8-10.8)
[2017-03-17 03:37] LABS: BASOPHIL # 0.2 10*3/uL (0-0.1); BASOPHILS 1 % (0-1); LYMPHOCYTE # 2.3 10*3/uL (1.3-4.4); METAMYELOCYTES 1 % (0-0); MONOCYTE # 1.4 10*3/uL (0.1-1.0); MYELOCYTES 2 % (0-0); NEUTROPHIL # 13.4 10*3/uL (2.3-7.9); NEUTROPHILS 75 % (47-73); TOTAL CELLS COUNTED 100 #CELLS
[2017-03-17 03:38] LABS: BUN 28 mg/dl (7-24); CARBON DIOXIDE 34 mmol/L (21-32); CHLORIDE 94 mmol/L (98-107); EST GLOM FILT AFRICAN AMERICAN > 60 ml/min; GLUCOSE 199 mg/dL (65-99); PLATELET SUFFICIENCY NORMAL (NORMAL); POLYCHROMASIA SLIGHT; POTASSIUM 5.2 mmol/L (3.5-5.1); SODIUM 134 mmol/L (136-145)
[2017-03-17 03:42] LABS: INTERNATIONAL NORM RATIO 1.1 (2.0-3.5); PROTHROMBIN TIME 11.4 SECONDS (9.0-12.4)
[2017-03-17 04:00] VITALS: BP 108/66
[2017-03-17 08:00] VITALS: BP 112/52
[2017-03-17 12:00] VITALS: BP 124/59
[2017-03-17 16:00] VITALS: BP 116/58
[2017-03-17 20:00] VITALS: BP 98/60
[2017-03-18] VITALS: BP 95/56
[2017-03-18 04:00] VITALS: BP 101/54
[2017-03-18 05:47] LABS: BUN 35 mg/dl (7-24); CARBON DIOXIDE 34 mmol/L (21-32); CHLORIDE 94 mmol/L (98-107); EST GLOM FILT AFRICAN AMERICAN > 60 ml/min; GLUCOSE 107 mg/dL (65-99); SODIUM 134 mmol/L (136-145)
[2017-03-18 06:07] LABS: HEMATOCRIT 36.2 % (42.0-52.0); HEMOGLOBIN 11.5 g/dl (14.0-18.0); MEAN CELL VOLUME 85.4 fl (80.0-94.0); MEAN CORPUSCULAR HGB 27.1 pg (27.0-31.0); MEAN CORPUSCULAR HGB CONC 31.8 g/dl (33.0-37.0); NUCLEATED RED BLOOD CELL 0.1 % (0.0-0.0); PLATELET COUNT AUTOMATED 305 10*3/uL (130-400); RED BLOOD COUNT 4.24 10*6/uL (4.50-5.90); RED CELL DISTRI WIDTH 15.2 % (0-14.5); WHITE BLOOD COUNT 21.2 10*3/uL (4.8-10.8)
[2017-03-18 06:47] LABS: EOSINOPHIL # 0.2 10*3/uL (0-0.4); EOSINOPHILS 1 % (1-4); LYMPHOCYTE # 2.1 10*3/uL (1.3-4.4); MONOCYTE # 1.9 10*3/uL (0.1-1.0); MYELOCYTES 2 % (0-0); NEUTROPHIL # 16.5 10*3/uL (2.3-7.9); NEUTROPHILS 78 % (47-73); OVALOCYTES FEW; PLATELET SUFFICIENCY NORMAL (NORMAL); POLYCHROMASIA SLIGHT; TOTAL CELLS COUNTED 100 #CELLS
[2017-03-18 08:00] VITALS: BP 110/56
[2017-03-18 12:00] VITALS: BP 98/47
[2017-03-18 16:00] VITALS: BP 101/58
[2017-03-18 20:00] VITALS: BP 106/55
[2017-03-19] VITALS (13 sets, daily range): BP systolic 93–120; BP diastolic 39–67
[2017-03-19 05:50] LABS: BUN 30 mg/dl (7-24); CARBON DIOXIDE 32 mmol/L (21-32); CHLORIDE 96 mmol/L (98-107); EST GLOM FILT AFRICAN AMERICAN > 60 ml/min; GLUCOSE 59 mg/dL (65-99); POTASSIUM 4.5 mmol/L (3.5-5.1); SODIUM 136 mmol/L (136-145)
[2017-03-19 06:32] LABS: HEMATOCRIT 37.6 % (42.0-52.0); HEMOGLOBIN 11.9 g/dl (14.0-18.0); MEAN CELL VOLUME 85.5 fl (80.0-94.0); MEAN CORPUSCULAR HGB CONC 31.6 g/dl (33.0-37.0); MEAN PLATELET VOLUME 11.1 fl (9.6-12.3); PLATELET COUNT AUTOMATED 285 10*3/uL (130-400); WHITE BLOOD COUNT 20.4 10*3/uL (4.8-10.8)
[2017-03-19 07:13] LABS: METAMYELOCYTES 2 % (0-0); MONOCYTE # 1.2 10*3/uL (0.1-1.0); NEUTROPHIL # 16.7 10*3/uL (2.3-7.9); NEUTROPHILS 82 % (47-73); PLATELET SUFFICIENCY NORMAL (NORMAL); TOTAL CELLS COUNTED 100 #CELLS
[2017-03-20] VITALS: BP 95/50
[2017-03-20 03:52] LABS: HEMATOCRIT 33.6 % (42.0-52.0); HEMOGLOBIN 10.7 g/dl (14.0-18.0); MEAN CELL VOLUME 84.6 fl (80.0-94.0); MEAN CORPUSCULAR HGB CONC 31.8 g/dl (33.0-37.0); MEAN PLATELET VOLUME 10.8 fl (9.6-12.3); PLATELET COUNT AUTOMATED 239 10*3/uL (130-400); RED BLOOD COUNT 3.97 10*6/uL (4.50-5.90); RED CELL DISTRI WIDTH 15.1 % (0-14.5); WHITE BLOOD COUNT 19.2 10*3/uL (4.8-10.8)
[2017-03-20 04:00] VITALS: BP 104/50
[2017-03-20 04:05] LABS: BUN 22 mg/dl (7-24); CARBON DIOXIDE 32 mmol/L (21-32); CHLORIDE 98 mmol/L (98-107); EST GLOM FILT AFRICAN AMERICAN > 60 ml/min; GLUCOSE 157 mg/dL (65-99); POTASSIUM 4.3 mmol/L (3.5-5.1); SODIUM 137 mmol/L (136-145)
[2017-03-20 04:11] LABS: LYMPHOCYTE # 2.3 10*3/uL (1.3-4.4); METAMYELOCYTES 2 % (0-0); MONOCYTE # 1.3 10*3/uL (0.1-1.0); NEUTROPHIL # 15.2 10*3/uL (2.3-7.9); NEUTROPHILS 79 % (47-73); PLATELET SUFFICIENCY NORMAL (NORMAL); TOTAL CELLS COUNTED 100 #CELLS
[2017-03-20 04:12] LABS: MICROCYTOSIS SLIGHT
[2017-03-20 08:00] VITALS: BP 131/65
[2017-03-20 10:59] LABS: INTERNATIONAL NORM RATIO 1.2 (2.0-3.5); PROTHROMBIN TIME 13.2 SECONDS (9.0-12.4)
[2017-03-20 12:00] VITALS: BP 107/52
[2017-03-20 16:00] VITALS: BP 96/44
[2017-03-20 20:00] VITALS: BP 121/52; BP 96/44
[2017-03-21] VITALS: BP 120/50; BP 134/55
[2017-03-21 04:00] VITALS: BP 134/55
[2017-03-21 06:27] LABS: HEMATOCRIT 32.5 % (42.0-52.0); HEMOGLOBIN 10.4 g/dl (14.0-18.0); MEAN CELL VOLUME 85.3 fl (80.0-94.0); MEAN CORPUSCULAR HGB 27.3 pg (27.0-31.0); MEAN PLATELET VOLUME 10.6 fl (9.6-12.3); PLATELET COUNT AUTOMATED 210 10*3/uL (130-400); RED BLOOD COUNT 3.81 10*6/uL (4.50-5.90); RED CELL DISTRI WIDTH 15.1 % (0-14.5); WHITE BLOOD COUNT 19.6 10*3/uL (4.8-10.8)
[2017-03-21 06:51] LABS: BUN 17 mg/dl (7-24); CARBON DIOXIDE 34 mmol/L (21-32); CHLORIDE 100 mmol/L (98-107); EST GLOM FILT AFRICAN AMERICAN > 60 ml/min; POTASSIUM 3.8 mmol/L (3.5-5.1); SODIUM 140 mmol/L (136-145)
[2017-03-21 06:53] LABS: GLUCOSE 38 mg/dL (65-99)
[2017-03-21 07:08] LABS: INTERNATIONAL NORM RATIO 1.3 (2.0-3.5); PROTHROMBIN TIME 13.8 SECONDS (9.0-12.4)
[2017-03-21 07:14] LABS: METAMYELOCYTES 1 % (0-0); MYELOCYTES 1 % (0-0); NEUTROPHIL # 16.3 10*3/uL (2.3-7.9); NEUTROPHILS 83 % (47-73); TOTAL CELLS COUNTED 100 #CELLS
[2017-03-21 07:15] LABS: OVALOCYTES FEW; PLATELET SUFFICIENCY NORMAL (NORMAL); POLYCHROMASIA SLIGHT
[2017-03-21 08:00] VITALS: BP 132/52
[2017-03-21] MEDS ORDERED: COUMADIN4 M2 PO (11:16)
[2017-03-21] MEDS ORDERED: HUMALOG100 U/ML SC (11:16)
[2017-03-21] MEDS ORDERED: FUROSEMIDE20 M1 PO (11:16)
[2017-03-21] MEDS ORDERED: CALCIUM CARBON500 M1 PO (11:16)
[2017-03-21] MEDS ORDERED: OXYCONTIN10 M1 PO (11:16)
[2017-03-21] MEDS ORDERED: D-1000 185 MG-11 TAB PO (11:16)
[2017-03-21] MEDS ORDERED: LOPRESSOR25 MG PO (11:16)
[2017-03-21] MEDS ORDERED: TYLENOL325 M2 PO (11:16)
[2017-03-21] MEDS ORDERED: ACETAMINOPHEN &1 TA1 PO (11:16)
[2017-03-21] MEDS ORDERED: Duragesic 75 M75 MCG T (11:16)
[2017-03-21] MEDS ORDERED: DUONEB 3 MG/3 ML3 M1 NEB (11:16)
[2017-03-21] MEDS ORDERED: LANTUS100 U/ML SC (11:16)
[2017-03-21 12:00] VITALS: BP 114/56
[2017-03-21] MEDS ORDERED: BIPAP (14:04)
== END 2017-03-21 15:34 | disposition other institution (70) | DRG 853 ==
LOC: ED 13:52 → 4E 15:40 → ICCU 15:40 → EDHOLD 15:40 → 5E 15:40 → ICCU 03-12 14:51 → 4E 03-20 14:10
PROVIDERS: Emergency Medicine; Hospitalist; Internal Medicine; Internal Medicine Hematology & Oncology; Orthopaedic Surgery
PROC: 5A09557 Assistance with Respiratory Ventilation, Greater than 96 Consecutive Hours, Continuous Positive Airway Pressure (ICD-10-PCS; principal; 2017-03-13)
PROC: 0FB13ZX Excision of Right Lobe Liver, Percutaneous Approach, Diagnostic (ICD-10-PCS; 2017-03-14)
PROC: 0PHD06Z Insertion of Intramedullary Internal Fixation Device into Left Humeral Head, Open Approach (ICD-10-PCS; 2017-03-19)
PROC: B5181ZA Fluoroscopy of Superior Vena Cava using Low Osmolar Contrast, Guidance (ICD-10-PCS; 2017-03-19)
PROC: 02HV33Z Insertion of Infusion Device into Superior Vena Cava, Percutaneous Approach (ICD-10-PCS; 2017-03-19)
PROC: B548ZZA Ultrasonography of Superior Vena Cava, Guidance (ICD-10-PCS; 2017-03-19)
DX: A41.9 Sepsis, unspecified organism (principal); J96.21 Acute and chronic respiratory failure with hypoxia; J18.1 Lobar pneumonia, unspecified organism; I11.0 Hypertensive heart disease with heart failure; C78.7 Secondary malignant neoplasm of liver and intrahepatic bile duct; M84.422A Pathological fracture, left humerus, initial encounter for fracture; C79.51 Secondary malignant neoplasm of bone; I50.32 Chronic diastolic (congestive) heart failure; J96.22 Acute and chronic respiratory failure with hypercapnia; E44.0 Moderate protein-calorie malnutrition; J44.1 Chronic obstructive pulmonary disease with (acute) exacerbation; E11.65 Type 2 diabetes mellitus with hyperglycemia; I48.2 Chronic atrial fibrillation; D64.9 Anemia, unspecified; K59.00 Constipation, unspecified; E27.9 Disorder of adrenal gland, unspecified; R33.9 Retention of urine, unspecified; C80.1 Malignant (primary) neoplasm, unspecified; I25.10 Atherosclerotic heart disease of native coronary artery without angina pectoris; E78.5 Hyperlipidemia, unspecified; F17.210 Nicotine dependence, cigarettes, uncomplicated; Z68.29 Body mass index [BMI] 29.0-29.9, adult; Z95.5 Presence of coronary angioplasty implant and graft; Z22.322 Carrier or suspected carrier of Methicillin resistant Staphylococcus aureus; Z90.49 Acquired absence of other specified parts of digestive tract; Z83.3 Family history of diabetes mellitus; Z82.49 Family history of ischemic heart disease and other diseases of the circulatory system

== ENCOUNTER → 2017-04-17 | Outpatient (CLI) | payer MEDICARE, OTHER ==
[~2017-04-17] MED LIST changes: +ACETAMINOPHEN &1 TA1 PO; +ADVAIR 500/501 EA INH; +BIPAP; +CALCIUM CARBON500 M1 PO; +COUMADIN2.5 M1 PO; +COUMADIN4 M2 PO; +COUMADIN5 M2 PO; +D-1000 185 MG-11 TAB PO; +DILTIAZEM 24HR120 MG PO; +DILTIAZEM 24HR180 MG PO; +DOCUSATE SODIU100 M2 PO; +DUONEB 3 MG/3 ML3 M1 NEB; +Duragesic 75 M75 MCG T; +FUROSEMIDE20 M1 PO; +GUAIFENESIN600 MG PO; +HUMALOG100 U/ML SC; +KLOR-CON M2020 ME1 PO; +LASIX40 MG PO; +LOPRESSOR25 MG PO; +MIRALAX119 GM PO; +OXYCONTIN10 M1 PO; +PROAIR HFA8.5 GM INH; +PROPAFENONE HC150 MG PO; +TYLENOL EXTRA500 MG PO; +TYLENOL325 M2 PO
== END | disposition home or self-care (01) ==
LOC: ORTHO 02:24
DX: M84.522 Pathological fracture in neoplastic disease, left humerus (principal); C80.1 Malignant (primary) neoplasm, unspecified; M16.11 Unilateral primary osteoarthritis, right hip; M17.11 Unilateral primary osteoarthritis, right knee; X58.XXXD Exposure to other specified factors, subsequent encounter

== ENCOUNTER → 2017-04-22 | Day surgery (SDC) | payer MEDICARE, OTHER ==
[~2017-04-22] VITALS: Ht 180.3 cm; Wt 101.2 kg
--- NOTE | ~2017-04-22 | PROC NOTE ---
[place], [place] PROCEDURE NOTE NAME: NIURKA HUNTER UNIT #: [id number] ROOM: DOCTOR: ELMER SONI MD BIRTHDATE: [birth year] DOS: 04/22/2017 PREOPERATIVE DIAGNOSIS: History of squamous cell carcinoma with unknown primary. POSTOPERATIVE DIAGNOSES: History of squamous cell carcinoma with unknown primary, rectal polyp (15 cm), sigmoid diverticulosis. PROCEDURE: Sigmoidoscopy. ENDOSCOPIST: Elmer Soni MD CATALYST OPERATOR CHIEF: KANU. ANESTHESIA: MAC. INDICATIONS: This is a 76-year-old gentleman who was recently in the hospital for treatment of a pathological left humeral fracture which was secondary to an unknown squamous cell carcinoma primary. It was decided to take the patient to the endoscopy suite to perform a sigmoidoscopy in order to find a potential source of the primary tumor. The procedure and its complications were explained to the patient in detail preoperatively. Complications that were discussed included, but were not limited to bleeding, colon perforation, missed lesions and prolonged pain. He agreed to proceed. DESCRIPTION OF PROCEDURE: After identifying the patient, the patient was brought to the endoscopy suite and placed in a supine position. The left lateral position could not be assumed because the patient had recent surgery on the left humerus. After IV sedation was administered, a timeout procedure was called. A digital rectal exam was performed, which was within normal limits. An adult colonoscope was now introduced into the anal canal and advanced sequentially into the rectum and sigmoid colon approximately 240 cm from the anal verge. There was found to be sigmoid diverticulosis without any diverticulitis or bleeding or any lesions that could be seen in the entire sigmoid colon. Upon withdrawal of the scope, there was found to be a small polyp at 15 cm in the rectum, which was biopsied with the help of a biopsy forceps and sent for pathological diagnosis. The scope was withdrawn and the patient was taken to the recovery room in stable fashion. There were no complications. Dr. Elmer Soni, the attending endoscopist, was present throughout the operating case. [place], [place] PROCEDURE NOTE NAME: NIURKA HUNTER UNIT #: [id number] ROOM: DOCTOR: ELMER SONI MD BIRTHDATE: [birth year] Elmer Soni MD CM:JYOTI:PROCEDURE NOTE 1121 1357 ELMER SONI MD
[2017-04-22 11:12] VITALS: BP 129/71
[2017-04-22 11:27] VITALS: BP 148/69
[2017-04-22 11:42] VITALS: BP 142/68
== END | disposition home or self-care (01) ==
LOC: SDC 04-17 12:30
DX: K62.1 Rectal polyp (principal); K57.30 Diverticulosis of large intestine without perforation or abscess without bleeding; I25.2 Old myocardial infarction; I25.10 Atherosclerotic heart disease of native coronary artery without angina pectoris; I11.0 Hypertensive heart disease with heart failure; I50.9 Heart failure, unspecified; J44.9 Chronic obstructive pulmonary disease, unspecified; E10.9 Type 1 diabetes mellitus without complications; Z79.4 Long term (current) use of insulin; E78.5 Hyperlipidemia, unspecified; Z98.890 Other specified postprocedural states; Z95.5 Presence of coronary angioplasty implant and graft; Z85.9 Personal history of malignant neoplasm, unspecified

== ENCOUNTER 2017-05-10 18:29 | Inpatient (IN) | payer MEDICARE, OTHER ==
[~2017-05-10] VITALS: Ht 193 cm; Wt 104.3 kg
--- NOTE | ~2017-05-10 | PR ---
[place], [place] PROGRESS NOTE NAME: NIURKA HUNTER [facility] #: [id number] UNIT #: [id number] ROOM: [place] [address] DOCTOR: BASHIR HARRIS MD,AMEENA BIRTHDATE: [birth year] DOS: 05/12/2017 SUBJECTIVE: The patient remains in the Intensive Care Unit at this time, noted awake and alert. Cough has been noted with some chest congestion. There were no symptoms of hemoptysis. The patient has not been reported with any symptoms of pain of the lower extremities. OBJECTIVE: VITAL SIGNS: Showed the temperature noted as normal, respiratory rate 18, heart rate 98, blood pressure 163/83. The pulse oxygen saturation of the patient recorded on 6 L nasal cannula was 90% saturation. HEENT: Shows no acute changes. NECK: Supple. Head was atraumatic. Eyes nonicterus. NECK: Supple. CARDIOVASCULAR: S1, S2 audible. LUNGS: Noted with decreased breath sounds in the lower portion of the lungs bilaterally. ABDOMEN: Soft, nontender. EXTREMITIES: Show no edema. LABORATORY DATA: Blood culture from of this month, 2 sets showed no bacterial growth. The vancomycin trough level was 21.6, mildly elevated. CMP: Glucose 234. BUN and creatinine was normal. Albumin decreased at 2.1. Alkaline phosphatase noted to fall at 31 with AST of 64. The INR noted 3.7, which is about the therapeutic range. CBC today: WBC count 18.2, hemoglobin 11.3, hematocrit 37.8, platelet count was normal at 237,000. Differential noted 88% neutrophils. IMAGING DATA: Chest x-ray, 1 view, which has been done at this time reviewed from fax images personally does not show any new changes at this time. Stable appearance were noted. PA lateral view chest x-ray cannot be done because of the patient limitation moving his arms away from the body with current humeral fracture with the decreased mobility and other reasons. The MediPort noted in place in the right side. IMPRESSION: 1. The patient has been currently noted with acute severe hypoxic respiratory failure with acute bilateral bacterial pneumonia, most likely related to the aspiration, treated for gram-positive and gram-negative organisms. 2. Mild toxicity. Started with vancomycin as well. 3. The patient with history of metastatic cancer as a squamous cell, unknown primary. 4. Severe debility as well. PLAN OF MANAGEMENT: Adjustment of the dose of the Coumadin to maintain a therapeutic level of vancomycin between 15 and 20. Continue other antibiotic. Reduction of the antibiotic spectrum based on the final culture result's availability. Oxygen supplementation at this time to be continued to maintain a saturation of 92% or greater. BiPAP may be used in case of further deterioration of the respiratory status. Currently, the patient would not [place], [place] PROGRESS NOTE NAME: NIURKA HUNTER UNIT #: [id number] ROOM: [place] [address] DOCTOR: BASHIR HARRIS MD,AMEENA BIRTHDATE: [birth year] require use of the BiPAP. Supportive care. Aspiration precautions. Other usual plan of management and care. Additional changes in the treatment, continue to be made based on the progression of the illness. The Coumadin dose to be adjusted because of drug interaction with elevation of the INR above therapeutic range. There was no active bleeding. AMEENA CAMEJO MD CM:PNTRANS 1345 1342 AMEENA HARRIS MD 05/13/17 1342 interface
--- NOTE | ~2017-05-10 | EKG ---
[place], [place] ELECTROCARDIOGRAM REPORT NAME: NIURKA HUNTER UNIT #: [id number] ROOM: [place] [address] DOCTOR: BASHIR HARRIS MD,AMEENA BIRTHDATE: [birth year] DOS: 05/10/2017 The electrocardiogram was noted evidence of sinus tachycardia as well as right bundle branch block pattern. AMEENA CAMEJO MD CM:EKGRPT:ELECTROCARDIOGRAM REPORT 1545 2205 AMEENA HARRIS MD
--- NOTE | ~2017-05-10 | PR ---
[place], [place] PROGRESS NOTE NAME: NIURKA HUNTER UNIT #: [id number] ROOM: [place] [address] DOCTOR: AMEENA REYNOLDS MD BIRTHDATE: [birth year] DOS: 05/14/2017 SUBJECTIVE: The patient was independently seen and examined with [id number]-waty encounter. Physical examination performed. Labs were reviewed. The history was confirmed. The note which was done by the senior medical billing specialist, was approved. Any changes in the recommendation and treatment personally made. He has been noted comfortable at this time without any distress. The CT scan of the abdomen and pelvis showed extensive metastatic disease noted in the pelvic and abdominal area with previous known metastatic malignancy. The patient was comfortably resting at this time on the bed. PHYSICAL EXAMINATION: VITAL SIGNS: The patient was essentially noted stable. Pulse oxygen saturation on 5 L nasal cannula with 95% saturation noted. LUNGS: Noted without any wheezing or crackles. Decreased breaths are noted in the lower portion of the lungs. ABDOMEN: Soft with mild to moderate obesity and distention. Bowel sounds present. EXTREMITIES: Shows no edema. LABORATORY DATA: INR today was noted at 6.0. IMPRESSION: 1. The patient with already advanced squamous cell cancer. The patient managed at different parts of the body including bony structures and other of unknown primary. 2. Acute on chronic hypoxic respiratory failure, remains stable. 3. Basilar area of infiltration and acute pneumonia, which has been noted clinically stable. PLAN OF TREATMENT: Continue the current plan of management. Overall prognosis of the patient is noted extremely poor at this time. Consider hospice service assessment. [place], [place] PROGRESS NOTE NAME: NIURKA HUNTER UNIT #: [id number] ROOM: [place] [address] DOCTOR: AMEENA REYNOLDS MD BIRTHDATE: [birth year] AMEENA CAMEJO MD CM:PNTRANS 1142 1 AMEENA HARRIS MD 05/15/17 0242 interface
--- NOTE | ~2017-05-10 | EKG ---
[place], [place] ELECTROCARDIOGRAM REPORT NAME: NIURKA HUNTER UNIT #: [id number] ROOM: [place] [address] DOCTOR: BASHIR HARRIS MD,AMEENA BIRTHDATE: [birth year] DOS: 05/10/2017 The time for the patient's electrocardiogram is 07:18 p.m. AMEENA CAMEJO MD CM:EKGRPT:ELECTROCARDIOGRAM REPORT [id number] 2207 AMEENA HARRIS MD
--- NOTE | ~2017-05-10 | PR ---
[place], [place] PROGRESS NOTE NAME: NIURKA HUNTER UNIT #: [id number] ROOM: [place] [address] DOCTOR: BASHIR HARRIS MD,AMEENA BIRTHDATE: [birth year] DOS: 05/13/2017 SUBJECTIVE: He has been noted comfortable at this time from the pulmonary standpoint, noted with abdominal problem. The patient has been assessed with the KUB x-ray this morning. OBJECTIVE: VITAL SIGNS: Shows a normal temperature, respiratory rate of 12, heart rate 89, blood pressure 158/77. The pulse oxygen saturation of the patient was noted as 96% with the BiPAP on 4 L nasal cannula. HEENT: Examination shows no acute change. NECK: Supple. CARDIOVASCULAR: S1, S2 audible. LUNGS: The patient was noted without any wheezing or crackles at this time. ABDOMEN: Noted decreased bowel sounds. EXTREMITIES: Shows no edema. LABORATORY DATA: The patient's CBC today: WBC count elevated at 18.8, hemoglobin 11, hematocrit 37.5, platelet count was normal. The x-ray, KUB, which was done this morning for the patient was noted with marked gastric distention. The patient later on had CT scan of the abdomen and pelvis obtained on 05/13/2017 that described numerous lytic mass lesion in the pelvis sacral area. Large mass located in the inferior right sacrum. Multiple other masses were noted in the right acetabulum and other areas. Liver was also described with metastatic lung disease. Lower lobe areas of atelectasis are noted, which are not visible with the chest x-ray yesterday. IMPRESSION: Acute bilateral lower lobe pneumonia from aspiration with acute respiratory failure with some deterioration related to the current abdominal problem and distention and other etiology would be likely. History of metastatic cancer, unknown primary, squamous cell cancer. PLAN OF TREATMENT: No changes in the management of the patient. The patient continued to be managed with the BiPAP, oxygen supplementation. Clear delineation of the code status needs to be done for this patient because of the current metastatic malignancy. The patient's code status has been noted DNRCC arrest. However, the intubation and CPR needs to be clarified from the family members of the patient because of the current overall poor prognosis. [place], [place] PROGRESS NOTE NAME: NIURKA HUNTER UNIT #: [id number] ROOM: [place] [address] DOCTOR: AMEENA REYNOLDS MD BIRTHDATE: [birth year] AMEENA CAMEJO MD CM:PNTRANS 1537 0745 AMEENA HARRIS MD 05/14/17 0745 interface
--- NOTE | ~2017-05-10 | PR ---
[place], [place] PROGRESS NOTE NAME: NIURKA HUNTER [facility] #: [id number] UNIT #: [id number] ROOM: [place] [address] DOCTOR: LINNETTE RODRIGUEZ,YAYA BIRTHDATE: [birth year] DOS: 05/11/2017 SUBJECTIVE: The patient with fracture of right clavicle. He has metastatic squamous carcinoma of unknown primary and is doing well as an outpatient. I discussed with him for sigmoidoscopy by Dr. Soni which was negative which was done recently on 04/22. Subsequently, he was also scheduled to see ____ to rule out any head and neck etiology. He has seen Dr. Michael Akhtar post surgery and scheduled for a biopsy next . In the meantime, I will review the records and path reports and wait for Dr. Avelar's input before starting any chemotherapy. I will also get record of the x-rays from nursing in [place]. A full consult to follow depending on the above further intervention discussed. YAYA ANGLIN MD CM:PNTRANS 1154 YAYA ANGLIN MD 05/13/1730 interface
--- NOTE | ~2017-05-10 | CON ---
[place], [place] REPORT OF CONSULTATION NAME: NIURKA HUNTER [facility] #: [id number] UNIT #: [id number] ROOM: [place] [address] DOCTOR: AMEENA REYNOLDS MD BIRTHDATE: [birth year] DOS: 05/11/2017 Consultation was as per the hospitalist services for the assessment of symptoms of shortness of breath. The consultation requested by the hospitalist service. HISTORY OF PRESENT ILLNESS: This is a 76-year-old white male who has been known to me with past hospitalization. 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 The biopsy of the liver lesion was also done during that hospitalization. The patient is currently residing in the nursing facility. He has been brought to the hospital since the patient has developed symptoms of increased shortness of breath per nursing staff. The patient has been sent to the hospital where he has been assessed and currently admitted to the hospital. He has been noted currently comfortable at this time. The patient was noted with symptoms of shortness of breath. He denies any symptoms of chest pain. The patient does have mild cough without any sputum expectoration. He denies any symptoms of acute hemoptysis. REVIEW OF SYSTEMS: CONSTITUTIONAL: The patient does report symptoms of fatigue and tiredness without any fever or chills. EYES: Denies any burning, redness, or tenderness. EARS, NOSE, THROAT: No sore throat, hoarseness, otalgia, or postnasal drainage. CARDIOVASCULAR: Denies anginal pain, edema or pain of the lower extremities. GASTROINTESTINAL: Denies any symptoms of dysphagia, nausea, vomiting, diarrhea, abdominal pain, hematemesis, melena, or hematochezia. GENITOURINARY SYMPTOMS: Denies dysuria, suprapubic pain, or hematuria. CENTRAL NERVOUS SYSTEM: Decreased mobility with the patient was noted for several problems and/or multiple medical conditions. SKIN: Denies lesions or rashes. Remaining systems were reviewed with the patient, they were noted all negative. PAST MEDICAL HISTORY: 1. Atrial fibrillation. 2. Type 2 diabetes mellitus. 3. Essential hypertension. 4. Hyperlipidemia. 5. Moderate obesity. 6. Squamous cell metastatic cancer. 7. Compression fracture of the left humerus. 8. Metastatic lesions in the liver. 9. Moderate obesity. 10. History of chronic obstructive pulmonary disease. PAST SURGICAL HISTORY: 1. Appendectomy. 2. Radiofrequency ablation of the AV node. 3. ORIF of the left humeral fracture which were noted pathological. 4. Biopsy of the liver nodule in February 2017. [place], [place] REPORT OF CONSULTATION NAME: NIURKA HUNTER UNIT #: [id number] ROOM: [place] [address] DOCTOR: BASHIR HARRIS MD,AMEENA BIRTHDATE: [birth year] 5. Sigmoidoscopy for the patient that was done in February 2017 admission without any diagnosis of malignancy established at that time. 6. MediPort insertion. SOCIAL HISTORY: Currently resident of a halfway. History of tobacco use was noted as a teenager, pack of cigarettes per day until 2017. There was no history of alcohol or any illicit drugs. FAMILY HISTORY: The patient's father at the age of 82 years with complication related to surgery. The mother at the age of 6363 years old, complications related to the acute myocardial infarction. MEDICATIONS: The medications which has been currently listed and administered during this hospitalization were noted as use of simvastatin, Coumadin, gabapentin, potassium chloride, Lasix, vitamin D, metoprolol tartrate, propafenone, Mucinex 600 b.i.d., IV Solu-Medrol 60 mg b.i.d., lispro insulin, Dulera, Protonix, DuoNeb, IV Levaquin, vancomycin, IV Zosyn and other p.r.n. medications including pain management medications. ALLERGIES: THE DRUG ALLERGY HISTORY WAS NOTED NO KNOWN DRUG ALLERGIES. PHYSICAL EXAMINATION: GENERAL: This is a 76-year-old male who has been currently noted to be awake and alert without any acute distress at the present time of the assessment. Height of the patient recorded as 6 feet 4 inches, weight of 104 kilograms, BMI 28.0. VITAL SIGNS: Showed a normal temperature, respiratory rate 16-28, heart rate of 102-77, blood pressure 157/67-119/43, pulse oxygen saturation that was recorded at this time at the bedside was noted at 88% on 6 L nasal cannula. HEENT: Showed mild to moderate obesity. Decreased ____ space of the pharynx with high tongue base and crowding of the soft tissue structures. NECK: Supple. CARDIOVASCULAR: S1, S2 audible. LUNGS: The patient was noted with moderate decreased breath sounds noted with a questionable wheezing, no crackles. ABDOMEN: Soft, nontender. Bowel sounds present. CENTRAL NERVOUS SYSTEM: The patient was noted without any gross focal deficit, but limited exam. SKIN: Shows no lesions. EXTREMITIES: Moderate edema of bilateral lower extremities was noted. There were no clubbing or cyanosis. MUSCULOSKELETAL: There were no acute gross deformities visible . LABORATORY DATA: Lactic acid on admission was 2.9 yesterday, it was noted 1.9 this morning. The CMP of the patient that were done yesterday shows glucose 274, BUN and creatinine was normal, sodium 134. Alkaline phosphatase was elevated 600 with AST of 64, albumin 1.9, total protein of 5.2 and proBNP was 860. CBC of the patient, 05/10/2017, WBC count 15.1, hemoglobin 11, hematocrit 36.6, platelet count 200,000. The arterial blood gas, pH of 7.47, pCO2 of 41, pO2 of 51 on 6 liters nasal cannula. PT/PTT and INR were noted as normal this [place], [place] REPORT OF CONSULTATION NAME: NIURKA HUNTER UNIT #: [id number] ROOM: [place] [address] DOCTOR: BASHIR HARRIS MD,[facility] BIRTHDATE: [birth year] morning with PTT normal. CBC was noted as normal with 99% segmented neutrophils. Glucose 238. Sodium 135. Another arterial blood gas repeated for this patient shows pH of 7.45, PCO2 of 44.8, pO2 of 106 that was done on the BiPAP. The chest x-ray of the patient that was reviewed shows infiltration noted in the right lower lobe. CT scan of the chest, which was done without contrast for the patient was personally reviewed, shows right adrenal gland nodule was noted, unchanged. Sclerosis of the T7 vertebral body was noted suggestive of metastatic disease noted in the previous study and remains unchanged. Some abnormality noted in the right ____, appeared to be chronic. Lower portion of the lungs shows area of moderate to large consolidation, which was present in the right lower lobe with a small pleural fluid, a small area of atelectasis and/or infiltration, suspected in the left lower lobe. MediPort noted in place in the right side. IMPRESSION: 1. The patient who has been currently admitted to the hospital noted with acute on chronic hypoxic respiratory failure as a result of acute bacterial pneumonia with possibility of microaspiration would be considered resulting in large consolidation and infiltration in the right lower lobe and the left lower lobe. 2. Small pleural fluid secondary to acute bacterial pneumonia. 3. The patient with known history of metastatic squamous cell cancer. The patient of unknown primary as well. 4. Chronic anticoagulation noted therapeutic with history of atrial fibrillation noted with mild rapid ventricular response on this admission. 5. Acute sepsis related to the acute bacterial pneumonia with lactic acidosis, seemed to be resolved with followup lactic acid yesterday evening, noted at 1.9, decreased from 2.9 from admission. 6. Severe leukocytosis secondary to acute bacterial pneumonia as well. 7. Chronic immunosuppression secondary to the underlying malignancy. 8. History of pathological humeral fracture with ORIF done in 02/2017. 9. Acute exacerbation of chronic obstructive pulmonary disease. PLAN OF TREATMENT: The patient has been started on the BiPAP that will be continued intermittently to stabilize the respiratory status. Ordered the sputum for Gram stain and culture for this patient as well. Monitor culture results of the blood. Pleural fluid was noted small at this time, not amenable for any intervention. Continuation of the current antibiotics for the patient, which has been ordered. The patient on broad spectrum for the inpatient admission in the Intensive Care Unit for coverage of gram-positive and gram-negative infection because of the high risk of those infections and the patient currently stays in the nursing facility and was hospitalized, within 90 days received the broad spectrum intravenous antibiotics at that time as well. The antibiotic spectrum certainly would be decreased based on the available culture results. Obtain the chest x-ray of the patient in the next couple of days to reassess the pleural fluid progression or to the ultrasound of the chest at that time. Other supportive therapy, plan of management to be continued. The patient will be ordered urine for legionella antigen as well. Additional treatment changes, continue to be made based on the progression of the illness. Currently, titrate the oxygen supplementation. The patient noted not on the BiPAP to maintain a saturation of 92% greater. Clear delineation of the code [place], [place] REPORT OF CONSULTATION NAME: NIURKA HUNTER UNIT #: [id number] ROOM: [place] [address] DOCTOR: BASHIR HARRIS MD,AMEENA BIRTHDATE: [birth year] status of the patient also needs to be made for this patient. The patient currently noted he is a full code. Other supportive plan of management and care and treatments. Decrease the Solu-Medrol for this patient in the lower dose based on the improvement in the respiratory status. Continue anticoagulation with close monitoring since the INR could be elevated because of a drug interaction. Also continue to maximize the medical management of atrial fibrillation with rapid ventricular response with adjustments in medications as necessary. Thanks for allowing me to participate in the care of this patient. AMEENA CAMEJO MD CM:CONSTR:REPORT OF CONSULTATION 1233 05/14/17 0511 interface
--- NOTE | ~2017-05-10 | PR ---
[place], [place] PROGRESS NOTE [id number] UNIT #: [id number] ROOM: [place] [address] DOCTOR: YAYA ANGLIN MD BIRTHDATE: [birth year] DOS: 05/14/2017 SUBJECTIVE: The patient is resting comfortably in the bed. He is alert and oriented. PHYSICAL EXAMINATION: GENERAL: On exam, he is a pleasant gentleman, in no apparent distress. VITAL SIGNS: Stable. He is afebrile. HEENT: Normocephalic, atraumatic. NECK AND THYROID: Supple. No JVD, thyromegaly, or lymphadenopathy. HEART: Normal S1, S2. Regular rate and rhythm. LUNGS: Showed decreased breath sounds bilaterally. ABDOMEN: Soft. Nontender, nondistended. Bowel sounds present. EXTREMITIES: Normal ROM. No clubbing. No edema. LABORATORY DATA: White count of 18.8, hemoglobin 11.0, hematocrit 37.5, and platelet count of 230. ASSESSMENT: 1. Acute bilateral lower lobe pneumonia from aspiration. 2. Metastatic squamous cell carcinoma of unknown primary. 3. Anemia of neoplastic disorder. PLAN: Hospice is going to see him today. The patient is DNR with no intubation or CPR. Comfort and palliative care. YAYA ANGLIN MD CM:PNTRANS [id number] YAYA ANGLIN MD 05/15/176 interface
--- NOTE | ~2017-05-10 | PR ---
[place], [place] PROGRESS NOTE NAME: NIURKA HUNTER [facility] #: [id number] UNIT #: [id number] ROOM: [place] [address] DOCTOR: YAYA ANGLIN MD BIRTHDATE: [birth year] DOS: 05/12/2017 SUBJECTIVE: The patient has been complaining of pain and not been optimal. REVIEW OF SYSTEMS HEENT: No trouble swallowing. No double vision. No loss of vision. No pain. ENT AND RESPIRATORY: No wheeze. No change in voice. No cough. No shortness of breath. No coughing up blood. No epistaxis. CARDIOLOGIC: No chest pain. No dizziness. No irregular heartbeat. No leg edema. No palpitations. No shortness of breath. HEMATOLOGIC AND LYMPH: No past transfusion. No fatigue. No loss of appetite. No easy bruising. GASTROENEROLOGIC: No change in bowel habits. No vomiting blood. No abdominal cramping. No nausea. No vomiting. No diarrhea. No constipation. No blood in stool. MALE REPRODUCTIVE: No testicular pain. No penile discharge. MUSCULOSKELETAL: No back pain. No muscle pain or weakness. No tingling/numbness. UROLOGIC: No pain with urination. No difficulty urinating. No frequent urination. NEUROLOGIC: No burning pain in feet. No trouble with coordination. No loss of consciousness. No headache. No tingling/numbness. No memory loss. PHYSICAL EXAMINATION GENERAL: On examination, pleasant gentleman. VITAL SIGNS: Temperature afebrile HEENT: Normocephalic, atraumatic NECK AND THYROID: Supple. No JVD, thyromegaly, or lymphadenopathy. HEART: Normal S1, S2. Regular rate and rhythm. LUNGS: Clear to auscultation and percussion. ABDOMEN: Soft. Nontender, nondistended. Bowel sounds present. EXTREMITIES: Normal ROM. No clubbing. No edema. ASSESSMENT: 1. Hypoxic respiratory failure with bilateral bacterial pneumonia. 2. Metastatic squamous carcinoma, unknown primary. 3. Anemia of neoplastic disorder. PLAN: The patient's overall condition is very poor. I have talked to the family once his overall condition ____ hospice, pain control and comfort care. I talked to the family from the resident. The case was discussed. [place], [place] PROGRESS NOTE NAME: NIURKA HUNTER UNIT #: [id number] ROOM: [place] [address] DOCTOR: YAYA ANGLIN MD BIRTHDATE: [birth year] YAYA ANGLIN MD CM:[id number] YAYA ANGLIN MD 05/14/1718 interface
--- NOTE | ~2017-05-10 | PR ---
[place], [place] PROGRESS NOTE NAME: NIURKA HUNTER [facility] #: [id number] UNIT #: [id number] ROOM: [place] [address] DOCTOR: YAYA ANGLIN MD BIRTHDATE: [birth year] DOS: 05/12/2017 SUBJECTIVE: He is doing better. He had ____ large emesis and was started on Zofran. Today, he is still complaining of some nausea. I had reviewed his x-ray, which showed a displaced fracture of the left clavicle and the patient is on a sling. REVIEW OF SYSTEMS HEENT: No trouble swallowing. No double vision. No loss of vision. No pain. ENT AND RESPIRATORY: No wheeze. No change in voice. No cough. No shortness of breath. No coughing up blood. No epistaxis. CARDIOLOGIC: No chest pain. No dizziness. No irregular heartbeat. No leg edema. No palpitations. No shortness of breath. HEMATOLOGIC AND LYMPH: No past transfusion. No fatigue. No loss of appetite. No easy bruising. GASTROENTEROLOGIC: No change in bowel habits. No vomiting blood. No abdominal cramping. No nausea. No vomiting. No diarrhea. No constipation. No blood in stool. MALE REPRODUCTIVE: No testicular pain. No penile discharge. MUSCULOSKELETAL: No back pain. No muscle pain or weakness. No tingling/numbness. UROLOGIC: No pain with urination. No difficulty urinating. No frequent urination. NEUROLOGIC: No burning pain in feet. No trouble with coordination. No loss of consciousness. No headache. No tingling/numbness. No memory loss. PHYSICAL EXAMINATION GENERAL: Pleasant gentleman in no apparent distress. VITAL SIGNS: Stable. He is afebrile. HEENT: Normocephalic, atraumatic NECK AND THYROID: Supple. No JVD, thyromegaly, or lymphadenopathy. HEART: Normal S1, S2. Regular rate and rhythm. LUNGS: Clear to auscultation and percussion. ABDOMEN: Soft. Nontender, nondistended. Bowel sounds present. EXTREMITIES: Normal ROM. No clubbing. No edema. The right upper extremity is in a sling. RADIOLOGY: CT of the chest showed a small right pleural effusion and possible consolidation or pneumonia in the posterior middle right lobe. LABORATORY DATA: White count of 15.6, hemoglobin 11.3, hematocrit 37.8, platelet count of 223. ASSESSMENT: 1. Fracture ____ up to right clavicle after a fall. 2. Metastatic squamous cell carcinoma of unknown origin. 3. Leukocytosis, reactive. 4. Mild anemia of neoplastic disorder. PLAN: The patient is supposed to see ____ for a biopsy of the head and neck [place], [place] PROGRESS NOTE [id number] UNIT #: [id number] ROOM: [place] [address] DOCTOR: YAYA ANGLIN MD BIRTHDATE: [birth year] area to find out the primary. In the meantime, we will continue with present management. I will expect the counts will improve once overall condition improves. I had detailed discussion with the patient about his symptoms, seemed to understand it. YAYA ANGLIN MD CM:[id number] YAYA ANGLIN MD 05/13/171856 interface
--- NOTE | ~2017-05-10 | PR ---
[place], [place] PROGRESS NOTE NAME: NIURKA HUNTER UNIT #: [id number] ROOM: [place] [address] DOCTOR: GENEVIEVE BANERJEE DO BIRTHDATE: [birth year] DOS: 05/14/2017 SUBJECTIVE: The patient was seen and evaluated today. The patient is awake, alert and responsive. No nausea, vomiting, diarrhea, lightheadedness, dizziness, chest pain or shortness of breath. The patient complains of mild nausea. OBJECTIVE: VITAL SIGNS: Temperature 98.2, pulse 104, respiratory rate 18, blood pressure 147/79, pulse ox 90% on 6 liters nasal cannula. HEENT: No change. NECK: Supple. CARDIOVASCULAR: S1, S2 audible. LUNGS: Noted without any crackles or wheezing. ABDOMEN: Decreased bowel sounds. EXTREMITIES: Lower extremity shows no edema. LABORATORY DATA: White cell count 18.8, hemoglobin 11, platelet count . Chemistry: BUN 22, creatinine 0.69. IMAGING: Abdominal x-ray from 05/13/2017 showed gastric distention. Abdominal pelvis CT from 05/13/2017 showed numerous lytic mass, predominantly in the pelvis and sacrum, largest mass located in the inferior right sacrum and large masses of the right acetabulum and inferior pubic rami. Heterogenous attenuation within the liver concerning for metastatic disease. Findings appear progressed from prior study. IMPRESSION: 1. Acute bilateral lower lobe pneumonia from aspiration with acute respiratory failure. 2. Abdominal problem and distention. 3. History of metastatic cancer, unknown primary, squamous cell cancer. PLAN OF TREATMENT: 1. Continue current management with BiPAP as needed, oxygen supplementation. Continue Solu-Medrol, DuoNebs, and Levaquin. 2. Supportive care. GENEVIEVE BANERJEE DO [place], [place] PROGRESS NOTE NAME: NIURKA HUNTER UNIT #: [id number] ROOM: [place] [address] DOCTOR: GENEVIEVE BANERJEE DO BIRTHDATE: [birth year] AMEENA CAMEJO MD CM:YAAKOV [id number] GENEVIEVE BANERJEE DO 05/14/17 1258 interface
[2017-05-10 19:01] VITALS: BP 119/43
[2017-05-10 19:30] VITALS: BP 118/63
[2017-05-10 19:36] LABS: HEMATOCRIT 36.6 % (42.0-52.0); MEAN CELL VOLUME 80.1 fl (80.0-94.0); MEAN CORPUSCULAR HGB 24.1 pg (27.0-31.0); MEAN CORPUSCULAR HGB CONC 30.1 g/dl (33.0-37.0); MEAN PLATELET VOLUME 10.1 fl (9.6-12.3); PLATELET COUNT AUTOMATED 200 10*3/uL (130-400); RED BLOOD COUNT 4.57 10*6/uL (4.50-5.90); RED CELL DISTRI WIDTH 15.9 % (0-14.5); WHITE BLOOD COUNT 15.1 10*3/uL (4.8-10.8)
[2017-05-10 19:46] LABS: ACT PARTIAL THROMBO TIME 34.7 SECONDS (20.8-31.5); INTERNATIONAL NORM RATIO 3.4 (2.0-3.5)
[2017-05-10 19:53] LABS: ALBUMIN 1.9 gm/dl (3.1-4.5); ALKALINE PHOSPHATASE 600 U/L (45-117); BUN 15 mg/dl (7-24); CHLORIDE 95 mmol/L (98-107); CREATININE 0.74 mg/dL (0.70-1.30); MAGNESIUM 1.8 mg/dL (1.5-2.1); POTASSIUM 4.2 mmol/L (3.5-5.1); SGOT/AST 64 IU/L (3-35); SGPT/ALT 20 U/L (12-78); SODIUM 134 mmol/L (136-145); TOTAL PROTEIN 5.2 gm/dL (6.4-8.2)
[2017-05-10 19:55] LABS: TROPONIN I < 0.015 ng/ml (<0.045)
[2017-05-10 19:59] LABS: PLATELET SUFFICIENCY NORMAL (NORMAL); POLYCHROMASIA SLIGHT; TOTAL CELLS COUNTED 100 #CELLS
[2017-05-10 20:53] VITALS: BP 122/63
[2017-05-10 22:00] VITALS: BP 148/73; BP 159/74
--- NOTE | 2017-05-10 22:00 | NUR ---
A 76, admitted to [facility]U, under the services of GEETA Enriquez DO with a diagnosis of COPD EXACERBATION. Chief complaint is SOB AT CUSTODIAL. Patient arrived via stretcher from ER. Monitor applied. Initial assessment completed. Vital signs taken and recorded. GEETA ENRIQUEZ DO notified of admission to the unit. Orders received. See assessment for past medical history, medications and allergies.PT COMPLAINING OF SEVERE PAIN EVERYWHERE, SCREAMED HE WAS MOVED INTO THE BED, POX 85-87 ON NC6L, DR AARON UPDATED Patient and/or family oriented to unit. [facility] visitation policy reviewed. Clothing/patient valuable form completed. JORGE OROZCO
[2017-05-10] MEDS ORDERED: LASIX40 MG PO (22:08)
[2017-05-10] MEDS ORDERED: K-TAB10 MEQ PO (22:11)
[2017-05-10] MEDS ORDERED: BUSPIRONE10 MG PO (22:15)
[2017-05-10] MEDS ORDERED: NEURONTIN300 MG PO (22:19)
[2017-05-10] MEDS ORDERED: DULCOLAX10 M1 R (22:24)
[2017-05-10] MEDS ORDERED: MILK OF MA400 MG/5 M PO (22:27)
[2017-05-10] MEDS ORDERED: READY TO USE E133 ML R (22:29)
[2017-05-10 22:33] LABS: ABG BASE EXCESS 6.4 mmol/L (-2.0-2.0); ABG HCO3 30.3 mmol/l (22-26); ABG O2 SATURATION 87.9 % (95-97); ARTERIAL BLOOD GAS PCO2 41.3 mmHg (35-45); ARTERIAL BLOOD GAS PH 7.476 (7.35-7.45); ARTERIAL BLOOD GAS PO2 51.3 mmHg (80-90)
--- NOTE | 2017-05-10 22:40 | NUR ---
ABGS DRAWN URGENTLY FROM RIGHT RADIAL PER POLICY, MEDIPORT ASCESSED PER POLICY, PT NOT TURNED AT THIS TIME TO ASSESS SKIN SINCE PT IS IN SEVERE PAIN, SUPERISOR UPDATED ON POTENTIAL BEDSORE PT SAID HIS BUTT IS SORE, DR INGRAM MADE AWARE AND WILL DO SKIN ASSESSMENT WHEN PTS PAIN HAS BEEN CONTROLLED
--- NOTE | 2017-05-10 22:45 | NUR ---
RESP CALLED TO PUT PT ON BIPAP ORDERED
--- NOTE | 2017-05-10 22:51 | NUR ---
MORPHINE AND ZOFRAN GIVEN FOR 10 PAIN
--- NOTE | 2017-05-10 22:53 | NUR ---
TEDS NOT PLACED BECAUSE OF SEVERE 4+ SWELLING OF LOWER LEGS
[2017-05-11] VITALS: BP 148/73
--- NOTE | 2017-05-11 00:43 | NUR ---
PATIENT IN SEVERE PAIN, ALL OVER, MAINLY LT/RT ARM. PATIENT WAS GIVEN DILAUDID TO BE ADJUSTED IN BED, AND TO CHECK BACKSIDE. WILL MONITOR AND REASSESS.
--- NOTE | 2017-05-11 01:50 | NUR ---
PATIENT RESTING, NO SIGNS OF DISTRESS. DILAUDID EFFECTIVE.
--- NOTE | 2017-05-11 03:56 | NUR ---
24 HR chart check completed.
[2017-05-11 04:00] VITALS: BP 153/51
[2017-05-11 04:41] LABS: HEMOGLOBIN 10.7 g/dl (14.0-18.0); MEAN CELL VOLUME 80.4 fl (80.0-94.0); MEAN CORPUSCULAR HGB 23.9 pg (27.0-31.0); MEAN CORPUSCULAR HGB CONC 29.7 g/dl (33.0-37.0); MEAN PLATELET VOLUME 9.9 fl (9.6-12.3); PLATELET COUNT AUTOMATED 194 10*3/uL (130-400); RED BLOOD COUNT 4.48 10*6/uL (4.50-5.90); RED CELL DISTRI WIDTH 15.7 % (0-14.5); WHITE BLOOD COUNT 9.5 10*3/uL (4.8-10.8)
[2017-05-11 04:54] LABS: ACT PARTIAL THROMBO TIME 33.8 SECONDS (20.8-31.5); INTERNATIONAL NORM RATIO 3.1 (2.0-3.5)
[2017-05-11 05:00] LABS: BUN 14 mg/dl (7-24); CHLORIDE 96 mmol/L (98-107); MAGNESIUM 1.8 mg/dL (1.5-2.1); PHOSPHOROUS 3.2 mg/dL (2.5-4.9); POTASSIUM 4.7 mmol/L (3.5-5.1); SGOT/AST 53 IU/L (3-35); SGPT/ALT 21 U/L (12-78); SODIUM 135 mmol/L (136-145)
[2017-05-11 05:02] LABS: ALKALINE PHOSPHATASE 548 U/L (45-117); PLATELET SUFFICIENCY NORMAL (NORMAL); TOTAL CELLS COUNTED 100 #CELLS; TOTAL PROTEIN 5.2 gm/dL (6.4-8.2)
[2017-05-11 05:03] LABS: POLYCHROMASIA SLIGHT
[2017-05-11 05:47] LABS: ABG BASE EXCESS 6.4 mmol/L (-2.0-2.0); ABG HCO3 30.9 mmol/l (22-26); ABG O2 SATURATION 98.3 % (95-97); ARTERIAL BLOOD GAS PCO2 44.8 mmHg (35-45); ARTERIAL BLOOD GAS PH 7.45 (7.35-7.45)
--- NOTE | 2017-05-11 05:47 | NUR ---
PATIENT HAVING PAIN IN BOTH ARMS. DILAUDID WAS GIVEN. WILL MONITOR. AND REASSESS.
--- NOTE | 2017-05-11 06:12 | NUR ---
CONTACTED DR. CAMEJO FOR CONSULT.
[2017-05-11 08:00] VITALS: BP 157/67
--- NOTE | 2017-05-11 08:24 | NUR ---
PATIENT C/O RIGHT SHOULDER PAIN. RATED 7/10 ON PAIN SCALE. MEDICATED WITH DILAUDID 1MG IV PER PRN ORDER.
--- NOTE | 2017-05-11 11:22 | NUR ---
Assessed patient for possible wound to buttocks. Upon assessment skin intact with no redness noted to buttocks. Heel raiser pro boots were removed and bilateral feet assessed. No redness or wounds noted bilaterally. Bridge of nose also assessed due to bipap use and no wound or redness noted.
[2017-05-11 12:00] VITALS: BP 111/40
--- NOTE | 2017-05-11 14:41 | NUR ---
PATIENT C/O RIGHT SHOULDER PAIN. MEDICATED WITH DILAUDID 2MG IV PER PRN ORDER. WILL CONTINUE TO MONITOR.
[2017-05-11 16:00] VITALS: BP 109/48
[2017-05-11 20:00] VITALS: BP 117/59
--- NOTE | 2017-05-11 20:00 | NUR ---
DR CAMEJO CALLED REGARDING CXR IN AM. NEW ORDER FOR [facility] CXR IN AM.
[2017-05-12] VITALS: BP 157/68
--- NOTE | 2017-05-12 00:20 | NUR ---
MEDICATED WITH MORPHINE AND ZOFRAN PER PRN ORDER FOR C/O PAIN AND NAUSEA.
--- NOTE | 2017-05-12 02:00 | NUR ---
DILAUDID AND ZOFRAN EFFECTIVE.
[2017-05-12 04:00] VITALS: BP 156/68
[2017-05-12 04:20] LABS: BASO % 0.1 % (0.0-1.0); HEMATOCRIT 37.8 % (42.0-52.0); HEMOGLOBIN 11.3 g/dl (14.0-18.0); LYMPH % 5.1 % (27.0-41.0); MEAN CELL VOLUME 80.1 fl (80.0-94.0); MEAN CORPUSCULAR HGB 23.9 pg (27.0-31.0); MEAN CORPUSCULAR HGB CONC 29.9 g/dl (33.0-37.0); MEAN PLATELET VOLUME 9.7 fl (9.6-12.3); MONO # 0.9 10*3/uL (0.1-1.0); MONO % 4.9 % (3.0-9.0); NEUT # 16.5 10*3/uL (2.3-7.9); NEUT % 88.6 % (47.0-73.0); PLATELET COUNT AUTOMATED 223 10*3/uL (130-400); RED BLOOD COUNT 4.72 10*6/uL (4.50-5.90); RED CELL DISTRI WIDTH 15.9 % (0-14.5); WHITE BLOOD COUNT 18.6 10*3/uL (4.8-10.8)
[2017-05-12 04:30] LABS: INTERNATIONAL NORM RATIO 3.7 (2.0-3.5)
[2017-05-12 04:38] LABS: ALBUMIN 2.1 gm/dl (3.1-4.5); ALKALINE PHOSPHATASE 531 U/L (45-117); BUN 18 mg/dl (7-24); CHLORIDE 98 mmol/L (98-107); CREATININE 0.73 mg/dL (0.70-1.30); POTASSIUM 4.2 mmol/L (3.5-5.1); SGOT/AST 64 IU/L (3-35); SGPT/ALT 25 U/L (12-78); SODIUM 138 mmol/L (136-145); TOTAL PROTEIN 5.5 gm/dL (6.4-8.2)
[2017-05-12 08:00] VITALS: BP 152/65
--- NOTE | 2017-05-12 11:51 | NUR ---
PATIENT C/O RIGHT SHOULDER PAIN AND NAUSEA. MEDICATED WITH ZOFRAN AND DILAUDID 2MG IV PER PRN ORDERS. WILL CONTINUE TO MONITOR.
[2017-05-12 12:00] VITALS: BP 163/83
[2017-05-12 16:00] VITALS: BP 151/63
--- NOTE | 2017-05-12 16:28 | NUR ---
PATIENT C/O RIGHT SHOULDER PAIN. MEDICATED WITH DILAUDID 2MG IV PER PRN ORDER. WILL CONTINUE TO MONITOR.
--- NOTE | 2017-05-12 17:35 | NUR ---
PATIENT C/O NAUSEA. MEDICATED WITH ZOFRAN PER PRN ORDER. WILL CONTINUE TO MONITOR.
[2017-05-12 20:00] VITALS: BP 160/56
--- NOTE | 2017-05-12 21:00 | NUR ---
MEDICATED WITH DILAUDID AND ZOFRAN PER PRN ORDER FOR C/O PAIN AND NAUSEA.
--- NOTE | 2017-05-12 22:00 | NUR ---
DILAUDID AND ZOFRAN EFFECTIVE.
--- NOTE | 2017-05-12 23:47 | NUR ---
pt placed on bipap
[2017-05-13] VITALS: BP 150/80
--- NOTE | 2017-05-13 03:00 | NUR ---
MEDICATED WITH DILAUDID AND ZOFRAN PER PRN ORDERS FOR C/O PAIN AND NAUSEA.
[2017-05-13 04:00] VITALS: BP 139/58
--- NOTE | 2017-05-13 04:00 | NUR ---
DILAUDID AND ZOFRAN EFFECTIVE.
[2017-05-13 04:11] LABS: HEMATOCRIT 37.5 % (42.0-52.0); MEAN CELL VOLUME 81.2 fl (80.0-94.0); MEAN CORPUSCULAR HGB 23.8 pg (27.0-31.0); MEAN CORPUSCULAR HGB CONC 29.3 g/dl (33.0-37.0); MEAN PLATELET VOLUME 10.3 fl (9.6-12.3); NUCLEATED RED BLOOD CELL 0.1 % (0.0-0.0); PLATELET COUNT AUTOMATED 230 10*3/uL (130-400); RED BLOOD COUNT 4.62 10*6/uL (4.50-5.90); RED CELL DISTRI WIDTH 15.9 % (0-14.5); WHITE BLOOD COUNT 18.8 10*3/uL (4.8-10.8)
[2017-05-13 04:21] LABS: INTERNATIONAL NORM RATIO 4.1 (2.0-3.5)
[2017-05-13 04:26] LABS: ALKALINE PHOSPHATASE 472 U/L (45-117); BUN 22 mg/dl (7-24); CHLORIDE 100 mmol/L (98-107); CREATININE 0.69 mg/dL (0.70-1.30); POTASSIUM 4.2 mmol/L (3.5-5.1); SGOT/AST 148 IU/L (3-35); SGPT/ALT 36 U/L (12-78); SODIUM 139 mmol/L (136-145)
[2017-05-13 04:35] LABS: PLATELET SUFFICIENCY NORMAL (NORMAL); TOTAL CELLS COUNTED 100 #CELLS
--- NOTE | 2017-05-13 07:00 | NUR ---
MEDICATED WITH DILAUDID AND ZOFRAN PER PRN ORDERS FOR C/O PAIN AND NAUSEA.
[2017-05-13 08:00] VITALS: BP 159/82
--- NOTE | 2017-05-13 08:30 | NUR ---
AITCHBONE BREAKER VS. STAFF AT BEDSIDE. PT COMES FROM [facility]. WILL CHECK WITH MARISELA FOR RETURN NEEDS.
--- NOTE | 2017-05-13 10:51 | NUR ---
THE COMBINATION OF MORPHINE EARLIER, PHENERGEN 12.5 AND DILUADID HAVE YRN VERY EFFECTIVE, PT RESTING RELATIVELY PAIN FREE, KUB COMPLETED AT BEDSIDE, BED BATH/SHAVE DONE, BIPAP PLACED BACK ON AFTER BATH
[2017-05-13 12:00] VITALS: BP 158/77
--- NOTE | 2017-05-13 14:41 | NUR ---
DILUADID GIVEN JUST PRIOR TO CT SCAN AND HAS BEEN EFFECTIVE
--- NOTE | 2017-05-13 14:45 | NUR ---
UPDATED DUANE ESTRADA ON PT CONDITION, PT NOW DNRCCA-NO INTUBATION.CPR, BIPAP ONLY
--- NOTE | 2017-05-13 15:32 | NUR ---
Patient is from [facility] and can return when medically stable for discharge.
[2017-05-13 16:00] VITALS: BP 166/74
--- NOTE | 2017-05-13 16:00 | NUR ---
SPOKE WITH ILDA AT [facility] REGARDING HOSPICE REFERRAL, BRENNEN FAXED TO [phone]. PER ILDA, A NURSE WILL BE IN FIRST THING IN THE MORNING TO SEE PATIENT. DR Zayra LOPEZ DO NOTIFIED
--- NOTE | 2017-05-13 16:41 | NUR ---
PHYSICAL THERAPY Hospice consult. Will await consult. Thank you for this referral. Abeba Brower,PT
--- NOTE | 2017-05-13 17:57 | NUR ---
DILUADID/PHENERGEN FOR ALL OVER PAIN AND CONTINUED NAUSEA PT RETURNED TO BIPAP AFTER BEING ABLE TO EAT ONE SHERBERT
--- NOTE | 2017-05-13 18:26 | NUR ---
PAIN AND NAUSEA RELIEVED
[2017-05-13 20:00] VITALS: BP 164/70
--- NOTE | 2017-05-13 21:43 | NUR ---
PATIENT GIVEN PHENERGAN FOR UPSET STOMACH AND FEELS LIKE HE IS GOING TO VOMIT.
--- NOTE | 2017-05-13 22:43 | NUR ---
PATIENT RESTING WTIH EYES CLOSED AT THIS TIME.
[2017-05-14] VITALS: BP 153/79
--- NOTE | 2017-05-14 02:19 | NUR ---
PATIENT GIVEN DILAUDID FOR 10/10 SHOULDER PAIN IN BOTH SHOULDERS AND ZOFRAN FOR UPSET STOMACH.
[2017-05-14 04:00] VITALS: BP 141/73
--- NOTE | 2017-05-14 04:29 | NUR ---
PATIENT LYING IN BED. PAIN MEDICATIONS AND ZOFRAN HAVE BEEN EFFECTIVE FOR THIS PATIENT AT THIS TIME.
--- NOTE | 2017-05-14 05:15 | NUR ---
PATIENT GIVEN PHENERGAN AND PAIN MEDICATION FOR BILAT SHOULDER/ARM PAIN AND NAUSEA.
--- NOTE | 2017-05-14 05:24 | NUR ---
CRITCAL INR OF 6.0 CALLED TO DOCTOR BLEBIEL. NO NEW ORDERS AT THIS TIME.
--- NOTE | 2017-05-14 06:22 | NUR ---
PATIENT HAS USED THE URINAL TWO TIMES THORUGH OUT THE NIGHT. DENIED ANY PROBLEMS URINATING.
[2017-05-14 08:00] VITALS: BP 147/79
--- NOTE | 2017-05-14 11:14 | NUR ---
[facility] HERE TO TALK WITH KT HUNTER.
[2017-05-14 12:00] VITALS: BP 143/62
--- NOTE | 2017-05-14 14:50 | NUR ---
PATIENT DISCHARGED TO INPATIENT HOSPICE.
== END 2017-05-14 14:50 | disposition hospice, home (50) | DRG 871 ==
LOC: ED 18:29 → ICCU 20:47 → EDHOLD 20:47 → ICCU 21:00
PROVIDERS: Internal Medicine; Internal Medicine Nephrology; Student in an Organized Health Care Education/Training Program; ADMIT Internal Medicine
PROC: 5A09457 Assistance with Respiratory Ventilation, 24-96 Consecutive Hours, Continuous Positive Airway Pressure (ICD-10-PCS; principal; 2017-05-11)
DX: A41.9 Sepsis, unspecified organism (principal); J96.21 Acute and chronic respiratory failure with hypoxia; J69.0 Pneumonitis due to inhalation of food and vomit; E43 Unspecified severe protein-calorie malnutrition; C78.7 Secondary malignant neoplasm of liver and intrahepatic bile duct; J90 Pleural effusion, not elsewhere classified; J15.9 Unspecified bacterial pneumonia; M84.512A Pathological fracture in neoplastic disease, left shoulder, initial encounter for fracture; J96.22 Acute and chronic respiratory failure with hypercapnia; J44.1 Chronic obstructive pulmonary disease with (acute) exacerbation; J44.0 Chronic obstructive pulmonary disease with (acute) lower respiratory infection; E87.1 Hypo-osmolality and hyponatremia; C79.51 Secondary malignant neoplasm of bone; C76.8 Malignant neoplasm of other specified ill-defined sites; D63.0 Anemia in neoplastic disease; R65.20 Severe sepsis without septic shock; D64.89 Other specified anemias; E87.8 Other disorders of electrolyte and fluid balance, not elsewhere classified; E11.65 Type 2 diabetes mellitus with hyperglycemia; E66.9 Obesity, unspecified; I48.91 Unspecified atrial fibrillation; I10 Essential (primary) hypertension; E78.5 Hyperlipidemia, unspecified; Z51.5 Encounter for palliative care; Z66 Do not resuscitate; Z99.81 Dependence on supplemental oxygen; Z87.01 Personal history of pneumonia (recurrent); Z87.311 Personal history of (healed) other pathological fracture; Z98.49 Cataract extraction status, unspecified eye; Z98.61 Coronary angioplasty status; Z82.49 Family history of ischemic heart disease and other diseases of the circulatory system; Z83.3 Family history of diabetes mellitus; Z86.14 Personal history of Methicillin resistant Staphylococcus aureus infection; Z79.4 Long term (current) use of insulin; Z79.899 Other long term (current) drug therapy; Z79.01 Long term (current) use of anticoagulants; Z68.28 Body mass index [BMI] 28.0-28.9, adult

== ENCOUNTER 2017-05-14 15:07 | Inpatient (IN) | payer OTHER, MEDICARE ==
[~2017-05-14] VITALS: Ht 193 cm; Wt 104.3 kg
[~2017-05-14 15:07] MED LIST changes: +BUSPIRONE10 MG PO; +DULCOLAX10 M1 R; +K-TAB10 MEQ PO; +MILK OF MA400 MG/5 M PO; +NEURONTIN300 MG PO; +READY TO USE E133 ML R
[2017-05-14 15:10] VITALS: BP 109/51
--- NOTE | 2017-05-14 15:10 | NUR ---
Time: 1509 A 76 year old MALE admitted to [facility] under services of [facility]. SUZANNE DINERO
[2017-05-14 19:59] VITALS: BP 116/60; BP 126/64
[2017-05-14 23:50] VITALS: BP 118/66
--- NOTE | 2017-05-15 03:01 | NUR ---
SATS DROPPED TO 80% SO OXYGEN INCREASED ON BIPAP BY RESP THERAPY D/T TITRATE ORDER.
--- NOTE | 2017-05-15 03:03 | NUR ---
Shift chart check completed.
[2017-05-15 04:00] VITALS: BP 128/56
--- NOTE | 2017-05-15 05:14 | NUR ---
BLADDER SCANNED FOR 644 AFTER NO URINE OUTPUT FOR 12 HOURS. GEN EDEMA/ANASARCA PRESENT. STRAIGHT CATH FOR 400cc CLOUDY MICHELLE URINE WITH A STRONG ODOR. NEW BAG OF DILAUDED HUNG FOR PAIN MANAGEMENT.
--- NOTE | 2017-05-15 05:52 | NUR ---
PATIENT IS HAVING APNIC PERIODS WITH RESP RATE DROPPING <8. PULSE OX REMAINS 94% ON 95% O2 viA BIPAP. DILAUDED DRIP REMAINS ON
--- NOTE | 2017-05-15 06:18 | NUR ---
MED REC NOT UPDATED TODAY THE PATIENT IS NOW HOSPICE & THE PATIENT IS UNABLE TO REVIEW & THE WAS EXTREMELY ANXIOUS ABOUT HIS PASSING SO WILL NOT BE APPROACHED TODAY/ .
--- NOTE | 2017-05-15 11:04 | NUR ---
AT BEDSIDE. DILAUDED DRIP INFUSING AT 3 MG/HR VIA [facility].
--- NOTE | 2017-05-15 12:21 | NUR ---
MOVED TO 401 VIA BED WITH BELONGINGS - HERE. DILAUDED DRIP REMAINS AT 3 MG/HR VIA [facility]
[2017-05-15 16:00] VITALS: BP 88/42
[2017-05-15 20:00] VITALS: BP 85/42
--- NOTE | 2017-05-15 20:23 | NUR ---
PATIENT FAMILY AT BED SIDE . PATIENT IS UNAROUSEABLE AT THIS TIME.
[2017-05-16] VITALS: BP 84/58
--- NOTE | 2017-05-16 | NUR ---
BLADDER SCAN COMPLETED. 160 CC URINE IN BLADDER.
--- NOTE | 2017-05-16 00:57 | NUR ---
PATIENT MEDICATED WITH TYLENOL SUPPOSITORY FOR TEMP OF 102.6. SEE EMAR. WILL CONTINUE TO MONITOR.
--- NOTE | 2017-05-16 04:50 | NUR ---
RESP SHALLOW. CONDITION POOR.
--- NOTE | 2017-05-16 05:01 | NUR ---
PATIENT WITH ABSENT HEART RATE WITH NO RESPIRATIONS. DR. SUTTON NOTIFIED. STATED DR SANFORD WILL BE SIGNING THE CERTIFICATE. CALLED AND MILKING WORKER PAGED.
--- NOTE | 2017-05-16 05:05 | NUR ---
FISH FILLETER NOTIFIED AND [facility] WAS CALLED.
--- NOTE | 2017-05-16 05:12 | NUR ---
[facility] CALL[facility]. KIRSTEN CALLED AT [facility]. PATIENT RULED OUT D/T CANCER AND DIABETIS. REFERENCE NUMBER #[id number].
--- NOTE | 2017-05-16 05:51 | NUR ---
FAMILY CYLINDER GRINDER CALLED . HOSPITAL BODY MAKER WITH .
--- NOTE | 2017-05-16 06:55 | NUR ---
FAMILY REQUESTING TO HAVE TOAST AND ORANGE JUICE SO SHE CAN TAKE HER PILLS. WAX CUTTER AND FRIEND AT BEDSIDE. REQUESTED TO HAVE [facility] CALLED IN AROUND AN HOUR. [facility] HOME CALLED.
--- NOTE | 2017-05-16 09:18 | NUR ---
[facility] HERE TO TRANSPORT PT TO HOME.
== END 2017-05-16 05:01 | disposition expired | DRG 871 ==
LOC: 4E 15:07 → ICCU 15:07 → 4E 05-15 12:22
PROVIDERS: ADMIT Internal Medicine
PROC: 5A09457 Assistance with Respiratory Ventilation, 24-96 Consecutive Hours, Continuous Positive Airway Pressure (ICD-10-PCS; principal; 2017-05-14)
DX: A41.9 Sepsis, unspecified organism (principal); J18.9 Pneumonia, unspecified organism; E43 Unspecified severe protein-calorie malnutrition; J90 Pleural effusion, not elsewhere classified; J96.01 Acute respiratory failure with hypoxia; J96.02 Acute respiratory failure with hypercapnia; C78.7 Secondary malignant neoplasm of liver and intrahepatic bile duct; E87.2 Acidosis; C79.51 Secondary malignant neoplasm of bone; D64.9 Anemia, unspecified; C80.1 Malignant (primary) neoplasm, unspecified; J44.0 Chronic obstructive pulmonary disease with (acute) lower respiratory infection; J44.1 Chronic obstructive pulmonary disease with (acute) exacerbation; E87.1 Hypo-osmolality and hyponatremia; Z66 Do not resuscitate; E11.65 Type 2 diabetes mellitus with hyperglycemia; E87.8 Other disorders of electrolyte and fluid balance, not elsewhere classified; R65.20 Severe sepsis without septic shock; R74.0 Nonspecific elevation of levels of transaminase and lactic acid dehydrogenase [LDH]; I48.91 Unspecified atrial fibrillation; E78.5 Hyperlipidemia, unspecified; Z87.81 Personal history of (healed) traumatic fracture; Z90.49 Acquired absence of other specified parts of digestive tract; Z82.49 Family history of ischemic heart disease and other diseases of the circulatory system; Z79.899 Other long term (current) drug therapy; Z79.01 Long term (current) use of anticoagulants; Z79.4 Long term (current) use of insulin; Z68.28 Body mass index [BMI] 28.0-28.9, adult